=== PATIENT | female | born 1960 | race Caucasian/White ===

== ENCOUNTER 2020-04-05 16:48 | Outpatient (REF) | payer OTHER, SELFPAY | END 2020-04-05 16:49 | disposition home or self-care (01) | LOC: HO.LNP 16:48 | PROVIDERS: Visit Provider Nurse Practitioner Family | DX: Z20.828 Contact with and (suspected) exposure to other viral communicable diseases (principal) | CPT/HCPCS: 87635 ==

== ENCOUNTER 2020-06-21 12:41 | Outpatient (REF) | payer OTHER, SELFPAY ==
[2020-06-21 14:12] LABS: Basophils Absolute Auto 0.1 X10*3/uL (0.0-0.2); Basophils Percent Auto 0.8 % (0-2); Eosinophils Absolute Auto 0.3 X10*3/uL (0.0-0.4); Eosinophils Percent Auto 4.3 % (0-4); Hematocrit 40.3 % (37-47); Hemoglobin 14.4 g/dl (12.0-16.0); Imm Gran Abs Auto 0.02 X10*3/uL (0.00-0.03); Imm Gran Pct Auto 0.3 % (0.0-0.4); Lymphocytes Absolute Auto 1.8 X10*3/uL (1.2-4.9); Lymphocytes Percent Auto 28.5 % (20-40); MANUAL DIFF FLAG NO; Mean Corpuscular HGB Conc 35.7 g/dl (31.0-35.0); Mean Corpuscular Hemoglobin 34.1 pg (27.0-33.0); Mean Corpuscular Volume 95.5 fL (80-98); Mean Platelet Volume 10.7 fL (9.4-12.3); Monocytes Absolute Auto 0.4 X10*3/uL (0.1-1.2); Monocytes Percent Auto 6.3 % (2-11); Neutrophils Absolute Auto 3.9 X10*3/uL (2.0-8.3); Neutrophils Percent Auto 59.8 % (45-73); Platelet Count 343 X10*3/uL (160-400); Red Blood Count 4.22 X10*6/uL (4.20-5.50); Red Cell Distribution Width 11.9 % (11.0-16.0); White Blood Count 6.5 X10*3/uL (4.8-10.8)
[2020-06-21 14:50] LABS: Anion Gap 14 (12-20); Blood Urea Nitrogen 17 mg/dL (9-16); Calcium 9.3 mg/dL (8.4-10.2); Carbon Dioxide 30 mmol/L (22-29); Chloride 97 mmol/L (96-108); Cholesterol 244 mg/dL; Estimated Glomerular Filt Rate > 60; Glucose Fasting 95 mg/dL (60-99); HDL Cholesterol 69 mg/dL; LDL Cholesterol Calculated 157 mg/dl; Potassium 3.8 mmol/l (3.3-5.1); Sodium 137 mmol/L (135-145); Triglycerides 90 mg/dL
== END 2020-06-21 12:42 | disposition home or self-care (01) ==
LOC: HO.HMGCLDS 12:41
PROVIDERS: PCP Internal Medicine; Visit Provider Internal Medicine
DX: I10 Essential (primary) hypertension (principal); U07.1 COVID-19
CPT/HCPCS: 36415; 80048; 80061; 85025

== ENCOUNTER 2020-06-29 10:39 | Outpatient (REF) | payer OTHER, SELFPAY ==
--- NOTE | 2020-06-29 | MM_ITS ---
EXAMINATION: MM SCREENING DIGITAL BREAST TOMOSYNTHESIS, BILATERAL CLINICAL INFORMATION: Screening. Asymptomatic. Prior outside mammography at unknown facility. The lifetime risk of breast cancer based on the Tyrer-Cuzick Model is 6%. COMPARISON: None. TECHNIQUE: Digital breast tomosynthesis is performed in both the craniocaudal and mediolateral oblique views along with computer-aided detection (CAD). Synthesized 2D images are generated from the tomosynthesis. FINDINGS: The breasts are heterogeneously dense, which may obscure small masses (ACR BI-RADS breast composition Category c). There are no significant masses, abnormal calcifications, or other abnormalities. The axilla and skin contours are unremarkable. MM/MM tomosynthesis screening BI IMPRESSION: No mammographic evidence of malignancy. ASSESSMENT: BI-RADS 1: Negative RECOMMENDATION: Routine annual mammography screening. This patient's information was entered into a reminder system with a target due date for their next mammogram.
== END 2020-06-29 10:40 | disposition home or self-care (01) ==
LOC: HO.MAMMO 10:39
PROVIDERS: Visit Provider Internal Medicine
DX: Z12.31 Encounter for screening mammogram for malignant neoplasm of breast (principal)
CPT/HCPCS: 77063; 77067

== ENCOUNTER 2021-02-02 10:08 | Outpatient (REF) | payer OTHER, SELFPAY ==
[2021-02-02 12:12] LABS: Alanine Aminotransferase 72 U/L (0-31); Albumin Level 4.6 g/dL (3.5-5.0); Alkaline Phosphatase 91 U/L (39-117); Anion Gap 14 (12-20); Aspartate Amino Transferase 48 U/L (5-31); Blood Urea Nitrogen 17 mg/dL (9-16); Calcium 9.7 mg/dL (8.4-10.2); Carbon Dioxide 28 mmol/L (22-29); Chloride 99 mmol/L (96-108); Estimated Glomerular Filt Rate > 60; Glucose Random 88 mg/dL (60-115); Potassium 4.8 mmol/L (3.3-5.1); Sodium 136 mmol/L (135-145); Total Protein 7.1 g/dL (6.5-8.0)
== END 2021-02-02 10:09 | disposition home or self-care (01) ==
LOC: HO.HMGCLDS 10:08
PROVIDERS: PCP Internal Medicine; Visit Provider Internal Medicine
DX: B00.1 Herpesviral vesicular dermatitis (principal); I10 Essential (primary) hypertension
CPT/HCPCS: 36415; 80053

== ENCOUNTER → 2021-04-20 09:51 | Outpatient (BNVA) | payer OTHER, SELFPAY | PROVIDERS: PCP Internal Medicine; Referring Provider Internal Medicine; Visit Provider Surgery ==

== ENCOUNTER 2021-05-19 15:34 | Outpatient (REF) | payer OTHER, SELFPAY ==
--- NOTE | 2021-05-19 17:10 | PFT_ITS ---
FLOWS: FEV1 103% of predicted at 2.76 L. FVC 93% of predicted at 3.20 L. FEV1 to FVC ratio of 0.86. No bronchodilator response. LUNG VOLUMES: Total lung capacity 87% of predicted at 4.57 L. Residual volume of 69% of predicted at 1.49 L. Slow vital capacity 99% of predicted at 3.16 L. Expiratory reserve volume 48% of predicted at 0.44 L. Diffusion capacity is mildly decreased. IMPRESSION: No obstructive or restrictive ventilatory defect. No bronchodilator response. Decreased diffusion capacity suggest emphysema. Juan Carrero MD AP/MODL / [id number]
== END 2021-05-19 15:35 | disposition home or self-care (01) ==
LOC: HO.RESP 15:34
PROVIDERS: PCP Internal Medicine; Visit Provider Internal Medicine
DX: R06.00 Dyspnea, unspecified (principal); Z87.891 Personal history of nicotine dependence
CPT/HCPCS: 94060; 94727; 94729

== ENCOUNTER 2021-06-08 12:51 | Outpatient (REF) | payer OTHER, SELFPAY ==
[2021-06-08 15:11] LABS: Alanine Aminotransferase 47 U/L (0-31); Albumin Level 4.6 g/dL (3.5-5.0); Alkaline Phosphatase 89 U/L (39-117); Anion Gap 13 (12-20); Aspartate Amino Transferase 29 U/L (5-31); Bilirubin Total 0.9 mg/dL (0.0-1.0); Blood Urea Nitrogen 16 mg/dL (9-16); Calcium 9.8 mg/dL (8.4-10.2); Carbon Dioxide 29 mmol/L (22-29); Chloride 99 mmol/L (96-108); Estimated Glomerular Filt Rate > 60; Glucose Random 77 mg/dL (60-115); Potassium 4.1 mmol/L (3.3-5.1); Sodium 137 mmol/L (135-145); Total Protein 7.2 g/dL (6.5-8.0)
== END 2021-06-08 12:52 | disposition home or self-care (01) ==
LOC: HO.HMGCLDS 12:51
PROVIDERS: PCP Internal Medicine; Visit Provider Internal Medicine
DX: I10 Essential (primary) hypertension (principal); R06.00 Dyspnea, unspecified; R79.89 Other specified abnormal findings of blood chemistry
CPT/HCPCS: 36415; 80053

== ENCOUNTER → 2021-08-16 15:21 | Outpatient (BNVA) | payer OTHER, SELFPAY | PROVIDERS: PCP Internal Medicine; Referring Provider Internal Medicine; Visit Provider Nurse Practitioner ==

== ENCOUNTER 2021-10-20 07:56 | Outpatient (REF) | payer OTHER, SELFPAY ==
[2021-10-20 07:41] VITALS: BP 159/90; PULSE 77; RESP 19; TEMP 36.6; O2SAT 100; BMI 23.3
--- NOTE | 2021-10-20 08:19 | W.PM.OPN ---
Operative Note Operative Note Date of Service: 10/20/21 Narrative: Preop diagnosis: Epidermal inclusion cyst, upper back Postop diagnosis: The same Procedure: Excision of epidermal inclusion cyst from the upper back under local anesthesia Surgeon: Jono Hutchins MD The patient is a 61-year-old female an epidermal inclusion cyst on the upper back measuring about 1 cm in diameter. She understood the technique of excision under local anesthesia. She was aware of the risks, benefits, and alternatives . She was brought to the minor procedure room. She was placed prone. The area of the cyst was prepped and draped. Lidocaine 1% was used for local anesthesia. I made an elliptical incision on the skin overlying this cyst and this was carried down through the full-thickness of the skin and subcutaneous fat to excise the entire cyst with the capsule intact. This dressings were applied. The procedure was completed. The patient tolerated procedure well. There were no complications noted. Estimated blood loss about 2 cc . She was given wound care instructions.
== END 2021-10-20 07:57 | disposition home or self-care (01) ==
LOC: HO.MS 07:56
PROVIDERS: PCP Internal Medicine; Visit Provider Surgery
PROC: (CPT 11402; principal; 2021-10-20 08:00)
DX: L72.0 Epidermal cyst (principal)
CPT/HCPCS: 11402; 88304

== ENCOUNTER → 2021-11-03 09:55 | Outpatient (BNVA) | payer OTHER, SELFPAY | PROVIDERS: PCP Internal Medicine; Referring Provider Internal Medicine; Visit Provider Surgery | DX: L72.0 Epidermal cyst (principal) ==

== ENCOUNTER 2022-08-02 12:26 | Outpatient (REF) | payer OTHER, SELFPAY ==
[2022-08-02 15:06] LABS: Alanine Aminotransferase 21 U/L (0-31); Albumin Level 4.5 g/dL (3.5-5.0); Alkaline Phosphatase 76 U/L (39-117); Anion Gap 12 (12-20); Aspartate Amino Transferase 15 U/L (5-31); Bilirubin Total 1.1 mg/dL (0.0-1.0); Blood Urea Nitrogen 22 mg/dL (9-16); Calcium 9.7 mg/dL (8.4-10.2); Carbon Dioxide 31 mmol/L (22-29); Chloride 98 mmol/L (96-108); Estimated Glomerular Filt Rate > 60; Glucose Random 80 mg/dL (60-115); Potassium 4.4 mmol/L (3.3-5.1); Sodium 137 mmol/L (135-145)
== END 2022-08-02 12:27 | disposition home or self-care (01) ==
LOC: HO.HMGCLDS 12:26
PROVIDERS: PCP Internal Medicine; Visit Provider Internal Medicine
DX: E78.9 Disorder of lipoprotein metabolism, unspecified (principal); I10 Essential (primary) hypertension
CPT/HCPCS: 36415; 80053

== ENCOUNTER 2023-01-30 11:13 | Outpatient (REF) | payer OTHER, SELFPAY ==
--- NOTE | ~2023-01-30 | MM_ITS ---
EXAMINATION: MM SCREENING DIGITAL BREAST TOMOSYNTHESIS, BILATERAL CLINICAL INFORMATION: Screening. Asymptomatic. COMPARISON: Mammography: This study is compared with prior exams dating back to 2020. TECHNIQUE: Digital breast tomosynthesis is performed in both the craniocaudal and mediolateral oblique views along with computer-aided detection (CAD). Synthesized 2D images are generated from the tomosynthesis. FINDINGS: The breasts are heterogeneously dense, which may obscure small masses (ACR BI-RADS breast composition Category c). There are no suspicious masses, calcifications or areas of architectural distortion. MM/MM tomosynthesis screening BI IMPRESSION: No mammographic evidence of malignancy. ASSESSMENT: BI-RADS BI-RADS 1 - Negative RECOMMENDATION: Routine annual mammography screening. 1 year F/U This examination should not preclude the clinical evaluation of a suspicious palpable abnormality. This patient's information was entered into a reminder system with a target due date for their next mammogram.
== END 2023-01-30 11:14 | disposition home or self-care (01) ==
LOC: HO.MAMMO 11:13
PROVIDERS: Visit Provider Internal Medicine
DX: Z12.31 Encounter for screening mammogram for malignant neoplasm of breast (principal)
CPT/HCPCS: 77063; 77067

== ENCOUNTER → 2023-01-30 11:30 | Outpatient (BNV) | payer OTHER, SELFPAY | PROVIDERS: Visit Provider Radiology Diagnostic Radiology | DX: Z12.31 Encounter for screening mammogram for malignant neoplasm of breast (principal) | CPT/HCPCS: 77063; 77067 ==

== ENCOUNTER 2023-02-05 12:45 | Outpatient (AMB) | payer OTHER, SELFPAY ==
--- NOTE | 2023-02-05 13:25 | AM.OFFWIN_ITS ---
Intake Vital Signs 02/05/23 13:27 Weight 148 lb BP 120/78 Blood Pressure Location Rt brachial Position Sitting Pulse 66 Pulse Source Pulse Oximeter Temp 97.8 F Temp Source Temporal Artery Scan Pulse Oximetry (%) 99 Oxygen Delivery Method Room Air Intake Visit Reasons: EST/bug bite causing sore jaw/neck Intake Note: Patient here for a rash that started on right arm and now spreading to the left arm. she states she was cleaning in an area of the yard last weekend that shes never really done in the past. she is now experiencing neck soreness under jaw line on each side. no issues swallowing. Patient Tobacco Use Status: Former Tobacco user Allergies seasonal Allergy (Unknown, Uncoded 02/05/23 14:09) unknown Medication List - Last Reconciled 02/05/23 by Britton Sun MD atenolol-chlorthalidone 50-25 mg 1 tab PO DAILY 90 days prednisone 10 mg PO DAILY valacyclovir 0 mg PO Do you need a note to return to daycare/school/sports/work: No HPI EST/bug bite causing sore jaw/neck HPI Details 62-year-old female presents to the office for a sick visit. Patient was weeding and has now developed a rash on both her forearms. Small blisters and it is itchy. [facility] Medical History Anxiety Epidermal inclusion cyst Hypertension, essential Lab test positive for detection of COVID-19 virus Surgical History History of removal of cyst Family History Father Heart disease Substance use disorder Mother HTN (hypertension) Mental health disorder Brother No problems noted. Sister Heart disease Substance use disorder Social History Housing: House Alcohol intake: current Alcohol intake frequency: a few times a week Patient Tobacco Use Status: Former Tobacco user Tobacco use type: Cigarette Years Smoked: 26 years e-Cigarette/Vaping Use: Never Used service: No Current occupational status: employed Cognitive needs: No Hearing needs: No Vision needs: Yes Physical Exam Vital Signs: Last Vital Signs Temp 97.8 F 02/05/23 13:27 Pulse 66 02/05/23 13:27 BP 120/78 02/05/23 13:27 Pulse Ox 99 02/05/23 13:27 Oxygen Delivery Method Room Air 02/05/23 13:27 Extrem Other: Right and left forearms: linear vesicular rash on both arms. Scratch arias present. Assessment & Plan Assessment & Plan (1) Contact dermatitis: Code(s): L25.9 - Unspecified contact dermatitis, unspecified cause Plan: Tapering dose of prednisone. If symptoms not better to follow-up here. Medications: New prednisone 6 pills by mouth day 1, 6 pills by mouth day 2, 5 pills by mouth day 3, 4 pills by mouth day 4, 3 pills by mouth day 5, 2 pills by mouth day 6, 1 pill by mouth day 7 and 1 pill by mouth day 8. 10 mg PO DAILY 28 tabs 0RF Coding Level of Care Code Est Pt Level 3 (67626) Diagnoses Contact dermatitis L25.9
[2023-02-05 13:27] VITALS: BP 120/78; PULSE 66; TEMP 36.6; O2SAT 99
== END 2023-02-05 14:25 | disposition home or self-care (01) ==
PROVIDERS: PCP Internal Medicine; Visit Provider Internal Medicine
DX: L25.9 Unspecified contact dermatitis, unspecified cause (principal)
CPT/HCPCS: 99213

== ENCOUNTER 2023-05-16 11:24 | Outpatient (REF) | payer OTHER, SELFPAY ==
[2023-05-16 13:45] LABS: Alanine Aminotransferase 29 U/L (0-31); Albumin Level 4.7 g/dL (3.5-5.0); Alkaline Phosphatase 76 U/L (39-117); Anion Gap 12 (12-20); Aspartate Amino Transferase 22 U/L (5-31); Blood Urea Nitrogen 18 mg/dL (9-16); Calcium 9.7 mg/dL (8.4-10.2); Carbon Dioxide 30 mmol/L (22-29); Chloride 96 mmol/L (96-108); Cholesterol 208 mg/dL (<200); Estimated Glomerular Filt Rate > 60; Glucose Fasting 95 mg/dL (60-99); HDL Cholesterol 55 mg/dL (>40); LDL Cholesterol Calculated 140 mg/dL (<100); Potassium 3.9 mmol/L (3.3-5.1); Sodium 134 mmol/L (135-145); Total Protein 7.4 g/dL (6.5-8.0); Triglycerides 67 mg/dL (<150)
== END 2023-05-16 11:25 | disposition home or self-care (01) ==
LOC: HO.HMGCLDS 11:24
PROVIDERS: PCP Internal Medicine; Visit Provider Internal Medicine
DX: D23.5 Other benign neoplasm of skin of trunk (principal); E78.9 Disorder of lipoprotein metabolism, unspecified; I10 Essential (primary) hypertension
CPT/HCPCS: 36415; 80053; 80061

== ENCOUNTER 2023-05-23 12:37 | Outpatient (AMB) | payer OTHER, SELFPAY ==
[2023-05-23 12:41] VITALS: BP 126/82; PULSE 69; O2SAT 96; BMI 24.7
--- NOTE | 2023-05-23 12:41 | A.OFFPC_ITS ---
Vital Signs 05/23/23 12:41 Height 5 ft 5 in Weight 148 lb 4 oz BMI 24.7 BP 126/82 Blood Pressure Location Rt brachial Position Sitting Pulse 69 Pulse Source Pulse Oximeter Pulse Oximetry (%) 96 Oxygen Delivery Method Room Air Intake Visit Reasons: 6m follow up Allergies seasonal Allergy (Unknown, Uncoded 02/05/23 14:09) unknown Medication List - Last Reconciled 05/23/23 by Earlene Chambers MD atenolol-chlorthalidone 50-25 mg 1 tab PO DAILY 90 days valacyclovir 0 mg PO Tobacco use date assessed: 05/23/23 Dental Screening Dental Screen Date: 05/23/23 Did you have a dental visit in the last 12 months?: Yes Did you have a dental problem in the last 6 months where you did not have access to dental care?: No Was dental information given to patient?: Patient has dentist HPI 6m follow up HPI Details Patient is 62-year-old female came in today for her regular follow-up appointment Blood pressure is well controlled patient is taking atenolol chlorthalidone 50- 25 mg and tolerating medication Her sodium came back slightly low at 134 We talked about alcohol consumption I would recommend that patient stopped drinking altogether. Her liver enzymes are normal now. Having difficulty sleeping at night she is taking below to need with Tylenol PM I would recommend to not take Tylenol p.m. instead she may take 1 Benadryl 25 mg at night. Labs to be done in couple of months to follow-up on low-sodium Patient have emphysema, she had pulmonary function test few years ago Also tells me that in the morning she wakes up and she coughs and coughs until her chest is clear of mucus. Then she is fine all day Patient is ex-smoker [facility] Medical History Epidermal inclusion cyst Anxiety Lab test positive for detection of COVID-19 virus Hypertension, essential Surgical History History of removal of cyst Family History Father Heart disease Substance use disorder Mother HTN (hypertension) Mental health disorder Brother No problems noted. Sister Heart disease Substance use disorder Social History Housing: House Alcohol intake: current Alcohol intake frequency: a few times a week Patient Tobacco Use Status: Former Tobacco user Tobacco use type: Cigarette Years Smoked: 26 years e-Cigarette/Vaping Use: Never Used service: No Current occupational status: employed Cognitive needs: No Hearing needs: No Vision needs: Yes Questionnaire Thrive Questionnaire Date Thrive assessed: 06/14/21 AUDIT C Alcohol Use Questionnaire (AUDIT-C) 1. How often do you have a drink containing alcohol?: 2-3 times a week 2. How many drinks containing alcohol do you have on a typical day when you are drinking?: 1 or 2 3. How often do you have six or more drinks on one occasion?: Never Total Score: 3 Score Reviewed/Action Taken: Yes JUD-7 AMB Questionnaire JUD-7 Date JUD - 7 assessed: 06/14/21 Source: Developed by Drs. Lyndon Perales, Wendy Dela Cruz, Chalo Beavers and colleagues, with an educational leslie from [employer]. Review of Systems Const Denies chills and Denies fever(s) ENT Denies epistaxis and Denies nasal discharge Card Denies chest pain Resp Denies chest congestion, Denies cough and Denies hemoptysis GI Denies diarrhea and Denies nausea Skin/Breast Denies rash Neuro Reports no additional complaints Psych Reports no additional complaints Endo Reports no additional complaints Physical exam (Primary Care) Vital Signs: Last Vital Signs Pulse 69 05/23/23 12:41 BP 126/82 05/23/23 12:41 Pulse Ox 96 05/23/23 12:41 Oxygen Delivery Method Room Air 05/23/23 12:41 BMI result Body Mass Index 24.7 Tobacco/Smoking Status: Tobacco use Status Tobacco use date assessed 05/23/23 05/23/23 12:45 Patient Tobacco Use Status Former Tobacco user 05/23/23 12:45 Tobacco use type Cigarette 05/23/23 12:45 e-Cigarette/Vaping Use Never Used 05/23/23 12:45 Thrive Assessment: Date of Thrive Assessment Date Thrive assessed 06/14/21 05/23/23 12:45 Const General: cooperative, comfortable and no acute distress Orientation/consciousness: patient oriented x3 HENMT Head: Yes normocephalic Eyes General: appearance normal, both eyes and all related structures Neck Neck: Yes supple Resp Effort & Inspection: normal respiratory effort, no cough and no stridor Cardio Rhythm: regular rhythm Heart sounds: S1 normal heart sound present and S2 normal heart sound present Skin General skin exam: turgor normal Neuro General: patient oriented x3, tone normal and moves all extremities Extrem Right lower extremity: no edema Left lower extremity: no edema Assessment and Plan Assessment & Plan (1) Hypertension, essential: Code(s): I10 - Essential (primary) hypertension (2) Mild emphysema: Code(s): J43.9 - Emphysema, unspecified (3) Alcoholism: Code(s): F10.20 - Alcohol dependence, uncomplicated (4) Blepharoptosis, bilateral: Code(s): H02.403 - Unspecified ptosis of bilateral eyelids (5) Hyponatremia: Code(s): E87.1 - Hypo-osmolality and hyponatremia Plan Patient is 62-year-old female came in today for her regular follow-up appointment Blood pressure is well controlled patient is taking atenolol chlorthalidone 50- 25 mg and tolerating medication Her sodium came back slightly low at 134 We talked about alcohol consumption I would recommend that patient stopped drinking altogether. Her liver enzymes are normal now. Having difficulty sleeping at night she is taking below to need with Tylenol PM I would recommend to not take Tylenol p.m. instead she may take 1 Benadryl 25 mg at night. Labs to be done in couple of months to follow-up on low-sodium Patient have emphysema, she had pulmonary function test few years ago Also tells me that in the morning she wakes up and she coughs and coughs until her chest is clear of mucus. Then she is fine all day Patient is ex-smoker Orders: Orders Basic Metabolic Panel Today E87.1 - Hypo-osmolality and hyponatremia Medications: Refilled atenolol-chlorthalidone 50-25 mg 1 tab PO DAILY 90 days 90 tabs 1RF I10 - Essential (primary) hypertension Coding Level of Care Code Est Pt Level 4 (87680) Diagnoses Hypertension, essential I10 Mild emphysema J43.9 Alcoholism F10.20 Blepharoptosis, bilateral H02.403 Hyponatremia E87.1
== END 2023-05-23 13:35 | disposition home or self-care (01) ==
PROVIDERS: PCP Internal Medicine; Visit Provider Internal Medicine
DX: I10 Essential (primary) hypertension (principal); J43.9 Emphysema, unspecified; F10.20 Alcohol dependence, uncomplicated; H02.403 Unspecified ptosis of bilateral eyelids; E87.1 Hypo-osmolality and hyponatremia
CPT/HCPCS: 99214

== ENCOUNTER 2023-11-10 10:48 | Outpatient (REF) | payer OTHER, SELFPAY ==
[2023-11-10 14:01] LABS: Anion Gap 14 (12-20); Blood Urea Nitrogen 17 mg/dL (9-16); Calcium 9.8 mg/dL (8.4-10.2); Carbon Dioxide 29 mmol/L (22-29); Chloride 95 mmol/L (96-108); Estimated Glomerular Filt Rate > 60; Glucose Random 85 mg/dL (60-115); Potassium 4.3 mmol/L (3.3-5.1); Sodium 134 mmol/L (135-145)
== END 2023-11-10 10:49 | disposition home or self-care (01) ==
LOC: HO.HMGCLDS 10:48
PROVIDERS: PCP Internal Medicine; Visit Provider Internal Medicine
DX: E87.1 Hypo-osmolality and hyponatremia (principal)
CPT/HCPCS: 36415; 80048

== ENCOUNTER 2023-11-14 11:12 | Outpatient (AMB) | payer OTHER, SELFPAY ==
--- NOTE | 2023-11-14 11:54 | MHC.PC.OV ---
Intake Visit Reasons: 6 month fu Allergies seasonal Allergy (Unknown, Uncoded 02/05/23 14:09) unknown Medication List - Last Reconciled 11/14/23 by Earlene Chambers MD atenolol-chlorthalidone 50-25 mg 1 tab PO DAILY 90 days valacyclovir 0 mg PO Tobacco use date assessed: 11/14/23 Dental Screening Dental Screen Date: 11/14/23 Did you have a dental visit in the last 12 months?: Yes Did you have a dental problem in the last 6 months where you did not have access to dental care?: No Was dental information given to patient?: Patient has dentist HPI 6 month fu HPI Details Patient is 63-year-old female this is telemed visit patient is taking atenolol chlorthalidone 50-25 mg and tolerating medication Her sodium came back slightly low at 134 We talked about alcohol consumption again today, I would recommend that patient stopped drinking altogether. Patient have emphysema, she had pulmonary function test few years ago doing well without inhalers Patient is ex-smoker f/u 6 M , lab order in [facility] Medical History Epidermal inclusion cyst Anxiety Lab test positive for detection of COVID-19 virus Hypertension, essential Surgical History History of removal of cyst Family History Father Heart disease Substance use disorder Mother HTN (hypertension) Mental health disorder Brother No problems noted. Sister Heart disease Substance use disorder Social History Housing: House Alcohol intake: current Alcohol intake frequency: a few times a week Patient Tobacco Use Status: Former Tobacco user Tobacco use type: Cigarette Years Smoked: 26 years e-Cigarette/Vaping Use: Never Used service: No Current occupational status: employed Cognitive needs: No Hearing needs: No Vision needs: Yes Questionnaire Thrive Questionnaire Date Thrive assessed: 06/14/21 AUDIT C Alcohol Use Questionnaire (AUDIT-C) 1. How often do you have a drink containing alcohol?: 2-3 times a week 2. How many drinks containing alcohol do you have on a typical day when you are drinking?: 1 or 2 3. How often do you have six or more drinks on one occasion?: Never Total Score: 3 Score Reviewed/Action Taken: Yes JUD-7 AMB Questionnaire JUD-7 Date JUD - 7 assessed: 06/14/21 Source: Developed by Drs. Lyndon Perales, Wendy Dela Cruz, Chalo Beavers and colleagues, with an educational leslie from [email or web address]. Review of Systems Const Denies chills and Denies fever(s) ENT Denies epistaxis and Denies nasal discharge Card Denies chest pain Resp Denies chest congestion, Denies cough and Denies hemoptysis GI Denies diarrhea and Denies nausea Skin/Breast Denies rash Neuro Reports no additional complaints Psych Reports no additional complaints Endo Reports no additional complaints Physical exam (Primary Care) Tobacco/Smoking Status: Tobacco use Status Tobacco use date assessed 11/14/23 11/14/23 11:55 Patient Tobacco Use Status Former Tobacco user 11/14/23 11:55 Tobacco use type Cigarette 11/14/23 11:55 e-Cigarette/Vaping Use Never Used 11/14/23 11:55 Thrive Assessment: Date of Thrive Assessment Date Thrive assessed 06/14/21 11/14/23 11:55 Telehealth Telehealth Telehealth Platform: [employer] Location of provider rendering services: practice address Location of patient: address on file Patient Identification confirmed using: Name, : Yes Telehealth method: voice only Patient verbally consented to treatment: Yes Patient verbally consented to billing insurance company: Yes Patient informed of any privacy concerns related to visit: Yes Minutes spent on Phone/Video with Pt.: 14 Assessment and Plan Assessment & Plan (1) Hyponatremia: Code(s): E87.1 - Hypo-osmolality and hyponatremia (2) Mild emphysema: Code(s): J43.9 - Emphysema, unspecified (3) Hypertension, essential: Code(s): I10 - Essential (primary) hypertension (4) Alcoholism: Code(s): F10.20 - Alcohol dependence, uncomplicated Plan Patient is 63-year-old female this is telemed visit patient is taking atenolol chlorthalidone 50-25 mg and tolerating medication Her sodium came back slightly low at 134 We talked about alcohol consumption again today, I would recommend that patient stopped drinking altogether. Patient have emphysema, she had pulmonary function test few years ago doing well without inhalers Patient is ex-smoker f/u 6 M , lab order in Orders: Orders Complete Blood Count Auto Diff 6 Months E87.1 - Hypo-osmolality and hyponatremia, I10 - Essential (primary) hypertension, J43.9 - Emphysema, unspecified Vitamin B12 6 Months E87.1 - Hypo-osmolality and hyponatremia, I10 - Essential (primary) hypertension, J43.9 - Emphysema, unspecified Comprehensive Met. Panel 6 Months E87.1 - Hypo-osmolality and hyponatremia, I10 - Essential (primary) hypertension, J43.9 - Emphysema, unspecified LDL Cholesterol Direct 6 Months E87.1 - Hypo-osmolality and hyponatremia, I10 - Essential (primary) hypertension, J43.9 - Emphysema, unspecified TSH reflex Free T4 6 Months E87.1 - Hypo-osmolality and hyponatremia, I10 - Essential (primary) hypertension, J43.9 - Emphysema, unspecified Medications: Refilled atenolol-chlorthalidone 50-25 mg 1 tab PO DAILY 90 days 90 tabs 1RF I10 - Essential (primary) hypertension Coding Level of Care Code Tele Est Pt Level 3 (95592) Diagnoses Hyponatremia E87.1 Mild emphysema J43.9 Hypertension, essential I10 Alcoholism F10.20
== END 2023-11-14 12:49 | disposition home or self-care (01) ==
LOC: HO.HMGC 11:12
PROVIDERS: PCP Internal Medicine; Visit Provider Internal Medicine
DX: E87.1 Hypo-osmolality and hyponatremia (principal); J43.9 Emphysema, unspecified; F10.20 Alcohol dependence, uncomplicated; I10 Essential (primary) hypertension
CPT/HCPCS: 99442

== ENCOUNTER 2024-02-05 10:37 | Outpatient (REF) | payer OTHER, SELFPAY ==
--- NOTE | ~2024-02-05 | MM_ITS ---
EXAMINATION: MM SCREENING DIGITAL BREAST TOMOSYNTHESIS, BILATERAL CLINICAL INFORMATION: Screening. Asymptomatic. COMPARISON: Mammography: Comparison is made with available priors TECHNIQUE: Digital breast tomosynthesis is performed in both the craniocaudal and mediolateral oblique views along with computer-aided detection (CAD). Synthesized 2D images are generated from the tomosynthesis. FINDINGS: The breasts are heterogeneously dense, which may obscure small masses (ACR BI-RADS breast composition Category c). There are no significant masses, abnormal calcifications, or other abnormalities. MM/MM tomosynthesis screening BI IMPRESSION: No mammographic evidence of malignancy. ASSESSMENT: BI-RADS BI-RADS 1 - Negative RECOMMENDATION: Routine annual mammography screening. 1 year F/U This examination should not preclude the clinical evaluation of a suspicious palpable abnormality. This patient's information was entered into a reminder system with a target due date for their next mammogram. Electronically signed by: Chelsea Dill DO 02/29/2024 03:01 PM EDT
== END 2024-02-05 10:38 | disposition home or self-care (01) ==
LOC: HO.MAMMO 10:37
PROVIDERS: PCP Internal Medicine; Visit Provider Internal Medicine
DX: Z12.31 Encounter for screening mammogram for malignant neoplasm of breast (principal)
CPT/HCPCS: 77063; 77067

== ENCOUNTER → 2024-02-05 11:00 | Outpatient (BNV) | payer OTHER, SELFPAY | PROVIDERS: PCP Internal Medicine; Visit Provider Internal Medicine | DX: Z12.31 Encounter for screening mammogram for malignant neoplasm of breast (principal) | CPT/HCPCS: 77063; 77067 ==

== ENCOUNTER 2024-02-22 09:33 | Outpatient (AMB) | payer OTHER, SELFPAY ==
[2024-02-22 09:36] VITALS: BP 120/80; PULSE 71; O2SAT 98; BMI 24.5
--- NOTE | 2024-02-22 09:36 | A.OFFPC_ITS ---
Vital Signs 3 02/22/24 09:36 Height 5 ft 5 in Weight 147 lb 2 oz BMI 24.5 BP 120/80 Blood Pressure Location Rt brachial Position Sitting Pulse 71 Pulse Source Pulse Oximeter Pulse Oximetry (%) 98 Oxygen Delivery Method Room Air Intake Visit Reasons: [id number] Allergies seasonal Allergy (Unknown, Uncoded 02/05/23 14:09) unknown Medication List - Last Reconciled 02/22/24 by Earlene Chambers MD atenolol-chlorthalidone 50-25 mg 1 tab PO DAILY 90 days valacyclovir 0 mg PO Tobacco use date assessed: 02/22/24 Dental Screening Dental Screen Date: 02/22/24 Did you have a dental visit in the last 12 months?: Yes Did you have a dental problem in the last 6 months where you did not have access to dental care?: No Was dental information given to patient?: Patient has dentist HPI [id number] 2 HPI0 Details Patient is 63-year-old female came in today to talk about couple of medical issues Patient says that she was at her OBGYN visit as she has noticed a lump right mid back in a meter OBGYN told her that this is a fat accumulation and it can be removed Patient wanted a 2nd opinion so she came in today to see me She has developed lipoma right mid back mid scapular line 7 cm x 4 cm soft nontender no skin eryth joanne We will continue to observe that as patient does not want any intervention She has also developed a cyst right epicondyle Patient had skin injury when she dropped a bottle of apple cider vinegar Laceration has healed but she has developed assist next to it which is nontender and is a size of a pea She will return in 2 weeks for re-evaluation [facility] Medical History Epidermal inclusion cyst Anxiety Lab test positive for detection of COVID-19 virus Hypertension, essential Surgical History History of removal of cyst Family History Father Heart disease Substance use disorder Mother HTN (hypertension) Mental health disorder Brother No problems noted. Sister Heart disease Substance use disorder Social History Housing: House Alcohol intake: current Alcohol intake frequency: a few times a week Patient Tobacco Use Status: Former Tobacco user Tobacco use type: Cigarette Years Smoked: 26 years e-Cigarette/Vaping Use: Never Used service: No Current occupational status: employed Cognitive needs: No Hearing needs: No Vision needs: Yes Questionnaire PHQ-9 Over the last 2 weeks, how often have you been bothered by any of the following problems? 1. Little interest or pleasure in doing things: not at all 2. Feeling down, depressed, or hopeless: not at all 3. Trouble falling or staying asleep, or sleeping too much: not at all 4. Feeling tired or having little energy: not at all 5. Poor appetite or overeating: not at all 6. Feeling bad about yourself - or that you are a failure or have let yourself or your family down: not at all 7. Trouble concentrating on things, such as reading the newspaper or watching television: not at all 8. Moving or speaking so slowly that other people could have noticed. Or the opposite - being so fidgety or restless that you have been moving around a lot more than usual: not at all 9. Thoughts that you would be better off or of hurting yourself in some way: not at all Total score: 0 Depression Screening Interpretation: Negative Depression Screening Done: Yes [id number] - PHQ-9 Billing: Yes Source: Developed by Drs. Lyndon Perales, Wendy Dela Cruz, Chalo Beavers and colleagues, with an educational leslie from [employer]. Thrive Questionnaire Date Thrive assessed: 02/22/24 I am a: Patient What is your living situation today?: I have a steady place to live Within the past 12 months, did the food you bought not last and you didn't have the money to get more?: Never true Within the past 12 months, did you worry whether your food would run out before you got money to buy more?: Never true Do you have trouble paying for medicines?: No Do you have trouble getting transportation to medical appointments?: No Do you have trouble paying your heating and electricity bill?: No Do you have trouble taking care of your child, family member or friend?: No Do you have trouble with day-to-day activities such as bathing, preparing meals, shopping, managing finances, etc.?: No Are you currently unemployed and looking for a job?: No Are you interested in more education?: No Please select the resources that you would like help with: None Currently or been in a relationship where the following occur: No concerns reported THRIVE Score: 0 AUDIT C Alcohol Use Questionnaire (AUDIT-C) 1. How often do you have a drink containing alcohol?: 2-4 times a month 2. How many drinks containing alcohol do you have on a typical day when you are drinking?: 1 or 2 3. How often do you have six or more drinks on one occasion?: Never Total Score: 2 Score Reviewed/Action Taken: Yes JUD-7 AMB Questionnaire JUD-7 Date JUD - 7 assessed: 02/22/24 Feeling nervous, anxious, or on edge: 0 = Not at all Not being able to stop or control worryin = Not at all Worrying too much about different things: 0 = Not at all Trouble relaxin = Not at all Being so restless that it is hard to sit still: 0 = Not at all Becoming easily annoyed or irritable: 0 = Not at all Feeling afraid as if something awful might happen: 0 = Not at all Total JUD-7 score (0-4 normal; 5-9 mild; 10-14 moderate; 15-21 severe): 0 Source: Developed by Drs. Lyndon Perales, Wendy Dela Cruz, Chalo Beavers and colleagues, with an educational leslie from [employer]. JUD-7 Assessment Billing JUD-7 Assessment Tool: JUD-7 Assessment 27372 Review of Systems Const Denies chills and Denies fever(s) ENT Denies epistaxis and Denies nasal discharge Card Denies chest pain Resp Denies chest congestion, Denies cough and Denies hemoptysis GI Denies diarrhea and Denies nausea Skin/Breast Denies rash Neuro Reports no additional complaints Psych Reports no additional complaints Endo Reports no additional complaints Physical exam (Primary Care) Vital Signs: Last Vital Signs Pulse 71 02/22/24 09:36 BP 120/80 02/22/24 09:36 Pulse Ox 98 02/22/24 09:36 Oxygen Delivery Method Room Air 02/22/24 09:36 BMI result Body Mass Index 24.5 Tobacco/Smoking Status: Tobacco use Status Tobacco use date assessed 02/22/24 02/22/24 09:38 Patient Tobacco Use Status Former Tobacco user 02/22/24 09:38 Tobacco use type Cigarette 02/22/24 09:38 e-Cigarette/Vaping Use Never Used 02/22/24 09:38 PHQ-9: PHQ-9 Score PHQ-9: Total score 0 02/22/24 10:02 Depression Screening Interpretation: Negative Thrive Assessment: Date of Thrive Assessment Date Thrive assessed 02/22/24 02/22/24 09:38 Currently or been in a relationship where the following occur: No concerns reported Const General: cooperative, comfortable and no acute distress Orientation/consciousness: patient oriented x3 HENMT Head: Yes normocephalic Eyes General: appearance normal, both eyes and all related structures Neck Neck: Yes supple Resp Effort & Inspection: normal respiratory effort, no cough and no stridor Cardio Rhythm: regular rhythm Heart sounds: S1 normal heart sound present and S2 normal heart sound present Back/Spine/Pelvis Back/spine/pelvis image: 2 1. 7 cm x 4 cm along soft lump, nontender without any skin erythema Skin General skin exam: turgor normal Neuro General: patient oriented x3, tone normal and moves all extremities Extrem Right lower extremity: no edema Left lower extremity: no edema Ankle/foot/toe images: 2 1. Small cyst over medial epicondyle right side without any pain or skin erythema Assessment and Plan Assessment & Plan (1) Lipoma of posterior chest wall: Code(s): D17.1 - Benign lipomatous neoplasm of skin and subcutaneous tissue of trunk (2) Dermoid cyst: Code(s): D36.9 - Benign neoplasm, unspecified site Plan Patient is 63-year-old female came in today to talk about couple of medical issues Patient says that she was at her OBGYN visit as she has noticed a lump right mid back in a meter OBGYN told her that this is a fat accumulation and it can be removed Patient wanted a 2nd opinion so she came in today to see me She has developed lipoma right mid back mid scapular line 7 cm x 4 cm soft nontender no skin erythema We will continue to observe that as patient does not want any intervention She has also developed a cyst right epicondyle Patient had skin injury when she dropped a bottle of apple cider vinegar Laceration has healed but she has developed assist next to it which is nontender and is a size of a pea She will return in 2 weeks for re-evaluation Coding Level of Care Code Est Pt Level 3 (48458) Diagnoses Lipoma of posterior chest wall D17.1 Dermoid cyst D36.9 Additional Codes JUD-7 Assessment Billing - JUD-7 Assessment Tool: JUD-7 Assessment [id number] ([id number])
== END 2024-02-22 10:05 | disposition home or self-care (01) ==
PROVIDERS: PCP Internal Medicine; Visit Provider Internal Medicine
DX: D17.1 Benign lipomatous neoplasm of skin and subcutaneous tissue of trunk (principal); D36.9 Benign neoplasm, unspecified site
CPT/HCPCS: 99213

== ENCOUNTER 2024-03-14 08:18 | Outpatient (AMB) | payer OTHER, SELFPAY ==
[2024-03-14 08:25] VITALS: BP 128/80; PULSE 63; O2SAT 100; BMI 24.5
--- NOTE | 2024-03-14 08:25 | MHC.PC.OV ---
Vital Signs 03/14/24 08:25 Height 5 ft 5 in Weight 147 lb 8 oz BMI 24.5 BP 128/80 Blood Pressure Location Lt brachial Position Sitting Pulse 63 Pulse Source Pulse Oximeter Pulse Oximetry (%) 100 Oxygen Delivery Method Room Air Intake Visit Reasons: 2- 3 week follow up. PT requested 3 weeks Allergies seasonal Allergy (Unknown, Uncoded 02/05/23 14:09) unknown Medication List - Last Reconciled 03/14/24 by Earlene Chambers MD atenolol-chlorthalidone 50-25 mg 1 tab PO DAILY 90 days valacyclovir 0 mg PO Tobacco use date assessed: 03/14/24 Dental Screening Dental Screen Date: 03/14/24 Did you have a dental visit in the last 12 months?: Yes Did you have a dental problem in the last 6 months where you did not have access to dental care?: No Was dental information given to patient?: Patient has dentist HPI 2- 3 week follow up. PT requested 3 weeks HPI Details Patient is 63-year-old female came in today to have a small procedure done in the office She has developed a small cyst on right ankle medial aspect which is not getting better Patient says that when it presses it hurts She has no erythema no warmth, sensory vascular intact Under sterile condition half a cm berenice was given over the cyst which is a size of Pea Clear fluid followed by small amount of blood drained Pressure was applied bleeding stopped, Band-Aid applied followed by James wrap Patient tolerated procedure well Instructions were given to keep an eye on the wound until healed If there is any erythema or pain she is to let me know [facility] Medical History Epidermal inclusion cyst Anxiety Lab test positive for detection of COVID-19 virus Hypertension, essential Surgical History History of removal of cyst Family History Father Heart disease Substance use disorder Mother HTN (hypertension) Mental health disorder Brother No problems noted. Sister Heart disease Substance use disorder Social History Housing: House Alcohol intake: current Alcohol intake frequency: a few times a week Patient Tobacco Use Status: Former Tobacco user Tobacco use type: Cigarette Years Smoked: 26 years e-Cigarette/Vaping Use: Never Used service: No Current occupational status: employed Cognitive needs: No Hearing needs: No Vision needs: Yes Questionnaire Thrive Questionnaire Date Thrive assessed: 03/14/24 I am a: Patient What is your living situation today?: I have a steady place to live Within the past 12 months, did the food you bought not last and you didn't have the money to get more?: Never true Within the past 12 months, did you worry whether your food would run out before you got money to buy more?: Never true Do you have trouble paying for medicines?: No Do you have trouble getting transportation to medical appointments?: No Do you have trouble paying your heating and electricity bill?: No Do you have trouble taking care of your child, family member or friend?: No Do you have trouble with day-to-day activities such as bathing, preparing meals, shopping, managing finances, etc.?: No Are you currently unemployed and looking for a job?: No Are you interested in more education?: No Please select the resources that you would like help with: None Currently or been in a relationship where the following occur: No concerns reported THRIVE Score: 0 AUDIT C Alcohol Use Questionnaire (AUDIT-C) 1. How often do you have a drink containing alcohol?: 2-4 times a month 2. How many drinks containing alcohol do you have on a typical day when you are drinking?: 1 or 2 3. How often do you have six or more drinks on one occasion?: Never Total Score: 2 Score Reviewed/Action Taken: Yes JUD-7 AMB Questionnaire JUD-7 Date JUD - 7 assessed: 02/22/24 Source: Developed by Drs. Lyndon Perales, Wendy Dela Cruz, Chalo Beavers and colleagues, with an educational leslie from [employer]. Review of Systems Const All systems reviewed & are unremarkable except as noted in HPI and below Physical exam (Primary Care) Vital Signs: Last Vital Signs Pulse 63 03/14/24 08:25 BP 128/80 03/14/24 08:25 Pulse Ox 100 03/14/24 08:25 Oxygen Delivery Method Room Air 03/14/24 08:25 BMI result Body Mass Index 24.5 Tobacco/Smoking Status: Tobacco use Status Tobacco use date assessed 03/14/24 03/14/24 08:28 Patient Tobacco Use Status Former Tobacco user 03/14/24 08:28 Tobacco use type Cigarette 03/14/24 08:28 e-Cigarette/Vaping Use Never Used 03/14/24 08:28 Thrive Assessment: Date of Thrive Assessment Date Thrive assessed 03/14/24 03/14/24 08:28 Currently or been in a relationship where the following occur: No concerns reported Const General: no acute distress Orientation/consciousness: patient oriented x3 Eyes General: appearance normal, both eyes and all related structures Resp Effort & Inspection: normal respiratory effort and able to speak in complete sentences Neuro General: patient oriented x3 Extrem Ankle/foot/toe images: 1. pea size round nontender cyst Psych Mental Status: mental status grossly normal Office Procedures I&D Drain Details: Small cyst drain on right ankle medial aspect, with the help of scalpel small incision half a cm, was given and small amount of clear fluid drain under sterile condition Wound cleaned with alcohol , Band-Aid applied followed by James wrap. [id number] Drainage of Lesion All charges added?: Procedure code (CPT) selection complete Coding Level of Care Code Est Pt Level 3 (92661) Diagnoses Ganglion cyst M67.40 CPT Codes I&D Drain - DRAIN 10: [id number] Drainage of Lesion ([id number]) Assessment & Plan Assessment & Plan (1) Ganglion cyst: Code(s): M67.40 - Ganglion, unspecified site Category: Medical Plan Patient is 63-year-old female came in today to have a small procedure done in the office She has developed a small cyst on right ankle medial aspect which is not getting better Patient says that when it presses it hurts She has no erythema no warmth, sensory vascular intact Under sterile condition half a cm berenice was given over the cyst which is a size of Pea Clear fluid followed by small amount of blood drained Pressure was applied bleeding stopped, Band-Aid applied followed by James wrap Patient tolerated procedure well Instructions were given to keep an eye on the wound until healed If there is any erythema or pain she is to let me know
== END 2024-03-14 08:53 | disposition home or self-care (01) ==
PROVIDERS: PCP Internal Medicine; Visit Provider Internal Medicine
DX: M67.40 Ganglion, unspecified site (principal)

== ENCOUNTER → 2024-03-14 08:18 | Outpatient (BNVA) | payer OTHER, SELFPAY | PROVIDERS: PCP Internal Medicine; Visit Provider Internal Medicine | DX: M67.471 Ganglion, right ankle and foot (principal) | CPT/HCPCS: 10060 ==

== ENCOUNTER 2024-04-16 08:17 | Outpatient (AMB) | payer OTHER, SELFPAY ==
--- NOTE | 2024-04-16 08:26 | A.OFFPC_ITS ---
Vital Signs 3 04/16/24 08:28 Height 5 ft 5 in Weight 146 lb BMI 24.3 BP 124/80 Blood Pressure Location Rt brachial Position Sitting Pulse 70 Pulse Source Pulse Oximeter Pulse Oximetry (%) 99 Oxygen Delivery Method Room Air Intake Visit Reasons: Cyst on Ankle Allergies seasonal Allergy (Unknown, Uncoded 04/16/24 08:28) unknown Medication List - Last Reconciled 04/16/24 by Earlene Chambers MD atenolol-chlorthalidone 50-25 mg 1 tab PO DAILY 90 days valacyclovir 0 mg PO Tobacco use date assessed: 04/16/24 Dental Screening Dental Screen Date: 03/14/24 HPI Cyst on Ankle 2 HPI0 Details Patient continued to have cyst over her left medial malleolus Patient says that when she wears boots due to winter weather that is when it bothers her She would like it to be removed completely need orthopedic referral [facility] Medical History Epidermal inclusion cyst Anxiety Lab test positive for detection of COVID-19 virus Hypertension, essential Surgical History History of removal of cyst Family History Father Heart disease Substance use disorder Mother HTN (hypertension) Mental health disorder Brother No problems noted. Sister Heart disease Substance use disorder Social History Housing: House Alcohol intake: current Alcohol intake frequency: a few times a week Patient Tobacco Use Status: Former Tobacco user Tobacco use type: Cigarette Years Smoked: 26 years e-Cigarette/Vaping Use: Never Used service: No Current occupational status: employed Cognitive needs: No Hearing needs: No Vision needs: Yes Questionnaire Thrive Questionnaire Date Thrive assessed: 02/22/24 I am a: Patient What is your living situation today?: I have a steady place to live Within the past 12 months, did the food you bought not last and you didn't have the money to get more?: Never true Within the past 12 months, did you worry whether your food would run out before you got money to buy more?: Never true Do you have trouble paying for medicines?: No Do you have trouble getting transportation to medical appointments?: No Do you have trouble paying your heating and electricity bill?: No Do you have trouble taking care of your child, family member or friend?: No Do you have trouble with day-to-day activities such as bathing, preparing meals, shopping, managing finances, etc.?: No Are you currently unemployed and looking for a job?: No Are you interested in more education?: No Please select the resources that you would like help with: None Currently or been in a relationship where the following occur: No concerns reported THRIVE Score: 0 JUD-7 AMB Questionnaire JUD-7 Date JUD - 7 assessed: 02/22/24 Source: Developed by Drs. Lyndon Perales, Wendy Dela Cruz, Chalo Beavers and colleagues, with an educational leslie from [employer]. Review of Systems Const All systems reviewed & are unremarkable except as noted in HPI and below Physical exam (Primary Care) Vital Signs: Last Vital Signs Pulse 70 04/16/24 08:28 BP 124/80 04/16/24 08:28 Pulse Ox 70 L 04/16/24 08:28 Oxygen Delivery Method Room Air 04/16/24 08:28 BMI result Body Mass Index 24.3 Tobacco/Smoking Status: Tobacco use Status Tobacco use date assessed 04/16/24 04/16/24 08:31 Patient Tobacco Use Status Former Tobacco user 04/16/24 08:27 Tobacco use type Cigarette 04/16/24 08:27 e-Cigarette/Vaping Use Never Used 04/16/24 08:27 Thrive Assessment: Date of Thrive Assessment Date Thrive assessed 02/22/24 04/16/24 08:27 Currently or been in a relationship where the following occur: No concerns reported Const General: no acute distress Orientation/consciousness: patient oriented x3 Eyes General: appearance normal, both eyes and all related structures Resp Effort & Inspection: normal respiratory effort and able to speak in complete sentences Neuro General: patient oriented x3 Extrem Ankle/foot/toe images: 2 1. Small cyst right at the point of left medial malleolus without signs of infection size of Pea Psych Mental Status: mental status grossly normal Coding Level of Care Code Est Pt Level 3 (14465) Diagnoses Acute left ankle pain M25.572 Chronicity: acute Dermoid cyst D36.9 Assessment & Plan Assessment & Plan (1) Pain in left ankle: Code(s): M25.572 - Pain in left ankle and joints of left foot Category: Medical Qualifiers: Chronicity: acute Qualified Code(s): M25.572 - Pain in left ankle and joints of left foot (2) Dermoid cyst: Code(s): D36.9 - Benign neoplasm, unspecified site Category: Medical Plan Patient continued to have cyst over her left medial malleolus Patient says that when she wears boots due to winter weather that is when it bothers her She would like it to be removed completely need orthopedic referral Orders: Referrals 2 Orthopedics Referral M25.572 - Pain in left ankle and joints of left foot
[2024-04-16 08:28] VITALS: BP 124/80; PULSE 70; O2SAT 99; BMI 24.3
== END 2024-04-16 09:04 | disposition home or self-care (01) ==
LOC: HO.HMCC 08:18
PROVIDERS: PCP Internal Medicine; Visit Provider Internal Medicine
DX: M25.572 Pain in left ankle and joints of left foot (principal); D36.9 Benign neoplasm, unspecified site

== ENCOUNTER → 2024-04-16 08:17 | Outpatient (BNVA) | payer OTHER, SELFPAY | PROVIDERS: PCP Internal Medicine; Visit Provider Internal Medicine ==

== ENCOUNTER 2024-09-19 10:33 | Outpatient (AMB) | payer OTHER, SELFPAY ==
[2024-09-19 10:37] VITALS: BP 140/82; PULSE 90; O2SAT 98; BMI 24.7
--- NOTE | 2024-09-19 10:37 | A.OFFPC_ITS ---
Vital Signs 09/19/24 10:37 Height 5 ft 5 in Weight 148 lb 6 oz BMI 24.7 BP 140/82 H Blood Pressure Location Rt brachial Position Sitting Pulse 90 Pulse Source Pulse Oximeter Pulse Oximetry (%) 98 Oxygen Delivery Method Room Air Intake Visit Reasons: Overdue F/U Allergies seasonal Allergy (Unknown, Uncoded 09/19/24 10:40) unknown Medication List - Last Reconciled 09/19/24 by Earlene Chambers MD atenolol-chlorthalidone 50-25 mg 1 tab PO DAILY 90 days valacyclovir 0 mg PO Tobacco use date assessed: 09/19/24 Dental Screening Dental Screen Date: 09/19/24 Did you have a dental visit in the last 12 months?: Yes Did you have a dental problem in the last 6 months where you did not have access to dental care?: No Was dental information given to patient?: Patient has dentist HPI Overdue F/U HPI Details History - The patient is a 64-year-old female pr esenting with a need for a refill of her blood pressure medication. - She has essential hypertension and rep orted inadvertent non-adherence to her medication for two days. - patient was struggling with the insura nce missed her regular appointment Problem List - Essential Hypertension Patient Instructions - Begin taking the blood pressure medica tion daily as prescribed. - Complete the necessary laboratory test s as advised. - Monitor blood pressure regularly at [facility]. - Follow up for routine checks every six months. Review of Systems - General: No fever no chills - Neurological: No headaches no dizziness - Ear nose throat: No sore throat no hearing difficulty no ear pain - Cardiovascular: No syncope, no chest pain, no palpitations - Gastrointestinal: No nausea vomiting or diarrhea - Endocrine: No polyuria polydipsia no heat intolerance - Genitourinary: No dysuria , no blood in urine Physical Exam - General: No acute distress - HEENT: No acute findings - Neck: Supple - Respiratory system: Able to talk in f ull sentences, no audible wheeze - Cardiovascular: S1-S2 regular in rate and rhythm - Gastrointestinal: No pain - Extremities: No new findings - CROP SCOUT: Alert awake oriented x3 motor se nsory intact - Skin: Normal turgor [facility] Medical History Epidermal inclusion cyst Anxiety Lab test positive for detection of COVID-19 virus Hypertension, essential Surgical History History of removal of cyst Family History Father Heart disease Substance use disorder Mother HTN (hypertension) Mental health disorder Brother No problems noted. Sister Heart disease Substance use disorder Social History Housing: House Alcohol intake: current Alcohol intake frequency: a few times a week Patient Tobacco Use Status: Former Tobacco user Tobacco use type: Cigarette Years Smoked: 26 years e-Cigarette/Vaping Use: Never Used service: No Current occupational status: employed Cognitive needs: No Hearing needs: No Vision needs: Yes Questionnaire PHQ-9 Over the last 2 weeks, how often have you been bothered by any of the following problems? 1. Little interest or pleasure in doing things: not at all 2. Feeling down, depressed, or hopeless: not at all 3. Trouble falling or staying asleep, or sleeping too much: not at all 4. Feeling tired or having little energy: not at all 5. Poor appetite or overeating: not at all 6. Feeling bad about yourself - or that you are a failure or have let yourself or your family down: not at all 7. Trouble concentrating on things, such as reading the newspaper or watching television: not at all 8. Moving or speaking so slowly that other people could have noticed. Or the opposite - being so fidgety or restless that you have been moving around a lot more than usual: not at all 9. Thoughts that you would be better off or of hurting yourself in some way: not at all Total score: 0 Depression Screening Interpretation: Negative Depression Screening Done: Yes 60720 - PHQ-9 Billing: Yes Source: Developed by Drs. Lyndon Perales, Wendy Dela Cruz, Chalo Beavers and colleagues, with an educational leslie from [employer]. Thrive Questionnaire Date Thrive assessed: 09/19/24 I am a: Patient What is your living situation today?: I have a steady place to live Within the past 12 months, did the food you bought not last and you didn't have the money to get more?: Never true Within the past 12 months, did you worry whether your food would run out before you got money to buy more?: Never true Do you have trouble paying for medicines?: No Do you have trouble getting transportation to medical appointments?: No Do you have trouble paying your heating and electricity bill?: No Do you have trouble taking care of your child, family member or friend?: No Do you have trouble with day-to-day activities such as bathing, preparing meals, shopping, managing finances, etc.?: No Are you currently unemployed and looking for a job?: No Are you interested in more education?: No Please select the resources that you would like help with: None Currently or been in a relationship where the following occur: No concerns reported THRIVE Score: 0 AUDIT C Alcohol Use Questionnaire (AUDIT-C) 1. How often do you have a drink containing alcohol?: 2-4 times a month 2. How many drinks containing alcohol do you have on a typical day when you are drinking?: 1 or 2 3. How often do you have six or more drinks on one occasion?: Never Total Score: 2 Score Reviewed/Action Taken: Yes JUD-7 AMB Questionnaire JUD-7 Date JUD - 7 assessed: 09/19/24 Feeling nervous, anxious, or on edge: 0 = Not at all Not being able to stop or control worryin = Not at all Worrying too much about different things: 0 = Not at all Trouble relaxin = Not at all Being so restless that it is hard to sit still: 0 = Not at all Becoming easily annoyed or irritable: 0 = Not at all Feeling afraid as if something awful might happen: 0 = Not at all Total JUD-7 score (0-4 normal; 5-9 mild; 10-14 moderate; 15-21 severe): 0 Source: Developed by Drs. Lyndon Perales, Wendy Dela Cruz, Chalo Beavers and colleagues, with an educational leslie from [employer]. JUD-7 Assessment Billing JUD-7 Assessment Tool: JUD-7 Assessment 26056 Physical exam (Primary Care) Vital Signs: Last Vital Signs Pulse 90 09/19/24 10:37 BP 140/82 H 09/19/24 10:37 Pulse Ox 98 09/19/24 10:37 Oxygen Delivery Method Room Air 09/19/24 10:37 BMI result Body Mass Index 24.7 Tobacco/Smoking Status: Tobacco use Status Tobacco use date assessed 09/19/24 09/19/24 10:41 Patient Tobacco Use Status Former Tobacco user 09/19/24 10:41 Tobacco use type Cigarette 09/19/24 10:41 e-Cigarette/Vaping Use Never Used 09/19/24 10:41 PHQ-9: PHQ-9 Score PHQ-9: Total score 0 09/19/24 10:50 Depression Screening Interpretation: Negative Thrive Assessment: Date of Thrive Assessment Date Thrive assessed 09/19/24 09/19/24 10:41 Currently or been in a relationship where the following occur: No concerns reported Coding Level of Care Code Est Pt Level 3 (42495) Diagnoses Hypertension, essential I10 Additional Codes JUD-7 Assessment Billing - JUD-7 Assessment Tool: JUD-7 Assessment 02482 ([id number]) PHQ-9 - 45636 - PHQ-9 Billing: Yes ([id number]) Assessment & Plan Assessment & Plan (1) Hypertension, essential: Code(s): I10 - Essential (primary) hypertension Category: Medical Plan History - The patient is a 64-year-old female presenting with a need for a refill of her blood pressure medication. - She has essential hypertension and reported inadvertent non-adherence to her medication for two days. - patient was struggling with the insurance missed her regular appointment Problem List - Essential Hypertension Patient Instructions - Begin taking the blood pressure medication daily as prescribed. - Complete the necessary laboratory tests as advised. - Monitor blood pressure regularly at home. - Follow up for routine checks every six months. Medications: Refilled atenolol-chlorthalidone 50-25 mg 1 tab PO DAILY 90 days 90 tabs 1RF I10 - Essential (primary) hypertension
--- OUTSIDE RECORDS SUMMARY | 2024-09-19 11:23 | XMS_ITS ---
Author Organization [facility] Address [address] [place] [address] Care Team Providers Care Pharmacy Analyst Name Role Phone TERESE, DERREKDevika Primary Care Provider Fern Haney [phone] REASON FOR VISIT Annual (YELLOW FORM DONE) Medications Medication SIG (Take, Route, Frequency, Duration) Notes Start Date End Date Status Vitamin D3 25 MCG (1000 UT) 1 capsule Or ally Once a day for 30 day(s) Active Vitamin C 500 MG as directed Orally Active Allergy Medication A ctive Atenolol-Chlorthalidone 50-25 MG Oral for 90 Active valACYclovir HCl 1 GM 1 tablet Orally Tw ice a day at earlies signs of symptoms x 3 days then prn for 14 days 03/20/2020 Active Vitamin B12 1000 MCG 1 tablet Orally Onc e a day for 30 day(s) Active Encounters Encounter Location Date Provider Diagnosis [facility] [place] [address] [facility] [address] [place] [address] 08/09/2023 Fern Barros Plan Of Treatment Next Appt Details Provider Name:Fern galvez, 11/24/2024 09:00:00 AM, [address] [facility] [facility] [address], [place], [address], Progress Notes * CAROLYN ROQUEDOB:1960 (64 yo F)Acc No.[id number]:08/09/2023 PROGRESS NOTES Patient:?CAROLYN ROQUE Appointment Provider:?Fern galvez M.D. :1960???Age:63 Y???Sex:Female D ate:08/09/2023 Address: [address] [facility] Pcp:BEE GUDINO Subjective: * Chief Complaints: * ???1. Annual (YELLOW FORM DO NE). * Medical History:?Nasal HSV, Essential (primary) hypertension, Stricture and stenosis of cervix uteri, Right lower quadrant abdominal swelling, mass and lump, Inconclusive mammogram, Mammographic heterogeneous density, bilateral breasts. * Superintendent Mechanical History:?/ Para?0/0.?Sexual activity?currently sexually active.?Last Pap Smear:?03/09/21 NIL, NEG HPV, 10/27/2015 NIL, NEG HRHPV.?Mammogram:?2019, 12/09/15, 50-75% density.?Abnormal Pap Smear:?None.?LMP and menses?menopause.?History of STD's:?none.?Colonoscopy?None.?Bone Density:?None.?IMPORTER EXPORTER HISTORY MISC.?05/23 Hsono showed thin lining11/07/16: DB counsleing done. Mandi lifetime risk of breast cancer 8.3%. No supplemental screening indicated.? * OB History:?Total pregnancies?.? * Medications:?Taking Vitamin B12 1000 MCG Tablet Extended Release 1 tablet Orally Once a day , Taking Vitamin D3 25 MCG (1000 UT) Capsule 1 capsule Orally Once a day , Taking Vitamin C 500 MG Capsule as directed Orally , Taking Allergy Medication , Taking Atenolol-Chlorthalidone 50-25 MG Tablet Oral , Taking valACYclovir HCl 1 GM Tablet 1 tablet Orally Twice a day at earlies signs of symptoms x 3 days then prn Objective: * Vitals:? Assessment: Plan: * Treatment: * Images: Billing Information: * Visit Code:? * Procedure Codes:? * Electronic signature of Lisa Barros MD on 09/19/2024 at 11:22 AM EDT Sign off status: Pending * Appointment Provider:?Fern Barros M.D. Date:?08/09/2023 Generated for Neal toribio/Meño/Monik on:?09/19/2024 11:22 AM EDT
--- OUTSIDE RECORDS SUMMARY | 2024-09-19 11:23 | XMS_ITS ---
Author Organization [employer] [facility] Address [address] [place] [address] Care Team Providers Care Pharmacy Informatics Manager Name Role Phone TERESE, DERREKDevika Primary Care Provider Fern Haney [phone] REASON FOR VISIT SCRIPT Medications Medication SIG (Take, Route, Fr equency, Duration) Notes Start Date End Date Status valACYclovir HCl 1 GM 1 tablet Orally Tw ice a day at earlies signs of symptoms x 3 days then prn for 14 days 03/20/2020 Active Encounters Encounter Location Date Provider Diagnosis [facility] [employer] [facility] [employer] [facility] [address] [place] [address] 06/05/2024 Fern Barros Plan Of Treatment Medication Medication Name Sig Start Date Stop Date Notes valACYclovir HCl 1 GM 1 tablet Orally Tw ice a day at earlies signs of symptoms x 3 days then prn for 14 days 03/20/2020 Next Appt Details Provider Name:Fern galvez, 11/24/2024 09:00:00 AM, [address], [address], [place], [address], Progress Notes * CAROLYN ROQUEDOB:1960 (63 yo F)Acc No.[id number]:06/05/2024 Patient:?CAROLYN ROQUE :1960???Age:63 Y???Sex:Female Address:[address] [place] [address] * Refills? Refill valACYclovir HCl Tablet, 1 GM, Orally, 18 Tablet, 1 tablet, Twice a day at earlies signs of symptoms x 3 days then prn, 14 days, Refills=6 * true * Date:? Generated for Neal toribio/Meño/Alistairitting on:?09/19/2024 11:22 AM EDT
--- OUTSIDE RECORDS SUMMARY | 2024-09-19 11:23 | XMS_ITS ---
Author Organization [employer] [facility] Address [address] [place] [address] Care Team Providers Care Fireworks Display Specialist Name Role Phone BEE GUDINO Primary Care Provider Fern Haney Unavailable [phone] Allergies No Known Allergies Results Component Value Reference Range Notes Urinalysis Reviewed date:11/19/2023 09:27:52 AM Interpretation: Performing Lab: Notes/Report: PH 8.0 PROTEIN TR GLUCOSE NEG BLOOD NEG [id number] IGP No Culture 30 Plus Reviewed date:11/22/2023 04:29:35 PM Interpretation: Performing Lab:[facility], [address], [address], [place], Phone - [phone], Director - [facility] Notes/Report: Clinical Information:[id number] Dates / Results....03/09/21 NIL Other..............Post Menopausal No. of containers..01 ThinPrep Vial DIAGNOSIS: NEGATIVE FOR IN TRAEPITHELIAL LESION OR MALIGNANCY. Specimen adequacy: Satisfact ory for evaluation. No endocervical component is identified. Clinician provided ICD10: Z0 1.419 Performed by: Karen quarles, Night Auditor (ASCP) . . Note: The Pap smear is a screening test designed to aid in the detection of premalignant and malignant conditions of the uterine cervix. It is not a diagnostic procedure and should not be used as the sole means of detecting cervical cancer. Both false-positive and false-negative reports do occur. . Test Methodology: This liquid based ThinPrep(R) pap test was screened with the use of an image guided system. HPV Aptima Negative Negative This nucleic acid amplification test detects fourteen high-risk HPV types (16,18,31,33,35,39,45,51,52,56,58 ,59,66,68) without differentiation. HPV Genotype Reflex Criteria not met, HPV Genotype not performed. PDF Report Reviewed date:11/22/2023 04:29:19 PM Interpretation: Performing Lab:[facility], [address], [address], [place], Phone - [phone], Director - [facility] Notes/Report: Clinical Information:[id number] Dates / Results....03/09/21 NIL Other..............Post Menopausal No. of containers..01 ThinPrep Vial REASON FOR VISIT Annual FRAME BUILDER Physical, Annual FRAME BUILDER Physical 60-85+ Medications Medication SIG (Take, Route, Frequency, Duration) Notes Start Date End Date Status Vitamin D3 25 MCG (1000 UT) 1 capsule Or ally Once a day for 30 day(s) PRN Active Vitamin C 500 MG as directed Orally PRN Active valACYclovir HCl 1 GM 1 tablet Orally Tw ice a day at earlies signs of symptoms x 3 days then prn for 14 days 03/20/2020 Active Allergy Medication PRN A ctive Atenolol-Chlorthalidone 50-25 MG Oral for 90 Active Vitamin B12 1000 MCG 1 tablet Orally Onc e a day for 30 day(s) PRN Active Social History Tobacco Use: Social History Observation Description Date Details (start date - stop date) Former Smoker NA - NA Tobacco Use/Smoking Question Answer Notes Are you a former smoker Alcohol Screen (Audit-C) Question Answer Notes Did you have a drink contain ing alcohol in the past year? Yes How often did you have a dri nk containing alcohol in the past year? 4 or more times a week (4 points) How many drinks did you have on a typical day when you were drinking in the past year? 1 or 2 drinks (0 point) Points 4 Sexual History Question Answer Notes Had sex in the past 12 months (vaginal, oral, or anal)? Yes with Men only Tobacco use other than smoking: Question Answer Notes Are you an other tobacco user? No Vital Signs Temperature 97.1 degrees Fahrenheit 11/19/19 24 Blood pressure systolic 110 mm Hg 11/19/19 24 Blood pressure diastolic 80 mm Hg 024 Height 64 in 11/19/2023 Weight 140 lbs 11/19/2023 BMI 24.03 kg/m2 11/19/2023 Encounters Encounter Location Date Provider Diagnosis [address] [place] [address] 11/19/2023 Fern Barros Encounter for gynecological examination (general) (routine) without abnormal findings Z01.419 ; Encounter for screening mammogram for malignant neoplasm of breast Z12.31 ; Benign lipomatous neoplasm of skin and subcutaneous tissue of trunk D17.1 ; Herpesviral infection, unspecified B00.9 and Dense breasts, unspecified R92.30 Assessments Encounter Date Diagnosis (ICD Code) Assessment Notes Treatment Notes Treatment Clinical Notes Section Notes 11/19/2023 Encounter for gynecological examination (general) (routine) without abnormal findings (ICD-10 - Z01.419) PAP TEST WITH HPV TYPING WAS OBTAINED. 11/19/2023 Encounter for screening mammogram for malignant neoplasm of breast (ICD-10 - Z12.31) REGULAR MAMMOGRAMS AND SBE'S WERE RECOMMENDED. 11/19/2023 Benign lipomatous neoplasm of skin and subcutaneous tissue of trunk (ICD-10 - D17.1) DISCUSSED FINDINGS, DX AND TX OPTIONS. RECOMMENDED SHE HAVE THIS EVALUATED AND EXCISED BY A SURGEON. PAT WAS REFERRED TO DR SALAZAR. 11/19/2023 Herpesviral infection, unspecified (ICD-10 - B00.9) DISCUSSED ORAL HSV ATTACKS. SHE TAKES VALTREX EPISODICALLY AND HAS ENOUGH REFILLS. SHE HAS LESS FREQUENT ATTACKS. 11/19/2023 Dense breasts, unspecified (ICD-10 - R92.30) DISCUSSED DENSE BREASTS ON MAMMOGRAM AND ITS IMPLICATIONS. 3D MAMMOGRAMS WERE RECOMMENDED. Plan Of Treatment Treatment Notes Assessment Notes Encounter for gynecological examination (general) (routine) without abnormal findings PAP TEST WITH HPV TYPING WAS OBTAINED. Encounter for screening mamm ogram for malignant neoplasm of breast REGULAR MAMMOGRAMS AND SBE'S WERE RECOMMENDED. Benign lipomatous neoplasm o f skin and subcutaneous tissue of trunk DISCUSSED FINDINGS, DX AND TX OPTIONS. RECOMMENDED SHE HAVE THIS EVALUATED AND EXCISED BY A SURGEON. PAT WAS REFERRED TO DR SALAZAR. Herpesviral infection, unspecified DISCU SSED ORAL HSV ATTACKS. SHE TAKES VALTREX EPISODICALLY AND HAS ENOUGH REFILLS. SHE HAS LESS FREQUENT ATTACKS. Dense breasts, unspecified DISCUSSED DENSE BREASTS ON MAMMOGRAM AND ITS IMPLICATIONS. 3D MAMMOGRAMS WERE RECOMMENDED. Pending Test Test Name Order Date MAMMOGRAM, SCREENING 11/19/2023 MM Digital Mammo Screening 11/19/2023 Next Appt Details Follow Up: 1 Year, Reason: Provider Name:Fern galvez, 11/24/2024 09:00:00 AM, [address], [address], [place], [address], Progress Notes * CAROLYN ROQUEDOB:1960 (63 yo F)Acc No.[id number]:11/19/2023 PROGRESS NOTES Patient:?JACQUELINECAROLYN OCHOA Appointment Provider:?Fern galvez M.D. :1960???Age:63 Y???Sex:Female D ate:11/19/2023 Address:[address] [place], [place] [id number] Pcp:BEE GUDINO Subjective: * Chief Complaints: * ???Annual FRAME BUILDER PhysicalAnnual FRAME BUILDER Physical 60-85+ * HPI: ???New/Follow-up Patient Consult:? PAT ENTERED MENOPAUSE IN HER 50'S.? SHE IS NOT SEXUALLY ACTIVE AT THE PRESENT TIME. SHE NOTED A NONTENDER MOVABLE MASS ON HER RIGHT BACK BELOW THE SHOULDER BLADE A FEW MONTHS AGO.? NO PAINS.?? 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 HER LAST MAMMOGRAM DONE IN 2022 SHOWED DENSE BREASTS AND WAS NORMAL.? HER LIFETIME BREAST CA RISK IS 8.3%. HER LAST PAP TEST IN 2020 WAS NEGATIVE AND HPV NEGATIVE. SHE HAS NO RISK FACTORS NECESSITATING A BMD AT THIS TIME. SHE HAS NOT HAD A COLONOSCOPY DONE YET. PFIZER X 2. ???Annual:? Patient presents for annual exam, ages 60-85, postmenopausal. ?General Health Maintenance:?Current breast complaints:?no breast pain, mass, discharge, or skin changes ?Urinary problems:?patient reports no urinary health problems or bowel health problems ?Calcium intake:?takes adequate calcium via diet and supplementation ?Significant FRAME BUILDER problems:?no significant teaching associate symptoms or problems * ROS:?general:?no?chest pain.?no?palpitations.?no?headache.?no?cough.?no?shortness of breath.?no?fever.?no?unexplained weight loss.?no?nausea/vomiting.?no?change in bowel movements.?no blood in stool.?no?genitourinary complaints.?no?skin complaints.? * Medical History:? * Sports Specialist History:?/ Para?0/0.?Sexual activity?currently sexually active.?Last Pap Smear:?03/09/21 NIL, NEG HPV, 10/27/2015 NIL, NEG HRHPV.?Mammogram:?2019, 12/09/15, 50-75% density.?Abnormal Pap Smear:?None.?LMP and menses?menopause.?History of STD's:?none.?Colonoscopy?None.?Bone Density:?None.?FRAME BUILDER HISTORY MISC.?05/23 Hsono showed thin lining11/07/16: DB counsleing done. Mandi lifetime risk of breast cancer 8.3%. No supplemental screening indicated.? * OB History:?Total pregnancies?.? * Surgical History:?No Surgica l History documented. * Hospitalization/Major Diagno stic Procedure:?No Hospitalization History. * Family History:?Mother: dece ased.?Father: , diagnosed with Unspecified heart disease.?Siblings: Sister: CHF.?NIECE: Breast Cancer, Pre Menopause.? Sister have COPD and problems with her kidney. * Social History:?Tobacco Use:?Tobacco Use/Smoking?Are you a?former smoker ?Tobacco use other than smoking?Are you an other tobacco user??No ???Sexual History:?Sexual History?Had sex in the past 12 months (vaginal, oral, or anal)??Yes ?with?Men only ?Details of Sexual History?Are you sexually active??Yes ???Drugs/Alcohol:?Drugs?Have you used drugs other than those for medical reasons in the past 12 months??No ?Alcohol Screen (Audit-C)?Did you have a drink containing alcohol in the past year??Yes ?How often did you have a drink containing alcohol in the past year??4 or more times a week (4 points) ?How many drinks did you have on a typical day when you were drinking in the past year??1 or 2 drinks (0 point) ?Points?4 ???Miscellaneous:?Caffeine: yes, frequency:, 4 cups a day of coffee. ?Exercise: no. ?Home smoke detector use: yes. ?Marital status: single. ?Natural support system: yes. ?Occupation: Works full-time. ?Sexually active: yes. * Medications:?TakingVitamin B 12 1000 MCG Tablet Extended Release 1 tablet Orally Once a day , Notes to Pharmacist: PRNVitamin D3 25 MCG (1000 UT) Capsule 1 capsule Orally Once a day , Notes to Pharmacist: PRNVitamin C 500 MG Capsule as directed Orally , Notes to Pharmacist: PRNAllergy Medication , Notes to Pharmacist: PRNAtenolol-Chlorthalidone 50-25 MG Tablet Oral valACYclovir HCl 1 GM Tablet 1 tablet Orally Twice a day at [facility] signs of symptoms x 3 days then prn Medication List reviewed and reconciled with the patientTaking Vitamin B12 1000 MCG Tablet Extended Release 1 tablet Orally Once a day , Notes to Pharmacist: PRNTaking Vitamin D3 25 MCG (1000 UT) Capsule 1 capsule Orally Once a day , Notes to Pharmacist: PRNTaking Vitamin C 500 MG Capsule as directed Orally , Notes to Pharmacist: PRNTaking Allergy Medication , Notes to Pharmacist: PRNTaking Atenolol-Chlorthalidone 50-25 MG Tablet Oral Taking valACYclovir HCl 1 GM Tablet 1 tablet Orally Twice a day at [facility] signs of symptoms x 3 days then prn Medication List reviewed and reconciled with the patient * Allergies:?N.K.D.A.no[Allerg ies Verified] Objective: * Vitals:?Ht: 64 in, Wt:140lbs , BMI:24.03Index, BP:110/80mm Hg, Temp:97.1F. * Examination: ???General Exam: ?CONSTITUTIONAL:?General Appearance:?alert, in no acute distress, normal, well nourished ?NECK/THYROID:?Inspection/Palpation:?normal ?Thyroid:?normal size and shape ?RESPIRATORY:?Auscultation: clear to auscultation bilaterally, Respiratory Effort: normal.?CARDIOVASCULAR:?Auscultation: regular rate and rhythm.?BREAST, Right:?Inspection/Palpation:?no discharge, no masses present, no nipple retraction, no skin changes, no skin dimpling, no tenderness, no lymphadenopathy, no axillary mass, no axillary tenderness ?BREAST, Left:?Inspection/Palpation:?no discharge, no masses present, no nipple retraction, no skin changes, no skin dimpling, no tenderness, no lymphadenopathy, no axillary mass, no axillary tenderness ?GASTROINTESTINAL:?Abdomen:?no masses, nontender, nondistended ?Liver and Spleen:?normal ?Hernias:?no hernias present, no inguinal adenopathy ?MUSCULOSKELETAL:?Inspection/Palpation:?no clubbing, cyanosis, or edema ?SKIN:?Skin:?NON TENDER SOFT MASS UNDER THE RIGHT SHOULDER BLADE ON HER BACK ?NEURO/PSYCH:?Orientation:?time , place, person ?Mood/Affect:?normal?Genitourinary: ?EXTERNAL GENITALIA:?External Genitalia:?normal, no lesions ?VAGINA:?Vagina:?normal appearance, no abnormal discharge, no lesions ?BLADDER:?Bladder:?no mass, nontender ?URETHRA:?Urethra:?no erythema or lesions present ?CERVIX:?Cervix:?no lesions, nontender ?UTERUS:?Uterus:?nontender, normal contour, normal mobility, normal size ?ADNEXA:?Adnexa:?no masses, no tenderness ?ANUS AND PERINEUM:?Anus/Perineum:?visually normal??? Assessment: * Assessment: 1.?Encounter for gynecologic al examination (general) (routine) without abnormal findings - Z01.419?2.?Encounter for screening mammogram for malignant neoplasm of breast - Z12.31?3.?Benign lipomatous neoplasm of skin and subcutaneous tissue of trunk - D17.1?4.?Herpesviral infection, unspecified - B00.9?5.?Dense breasts, unspecified - R92.30? Plan: * Treatment: ?LAB: Urinalysis (Collection Date & Time - 11/19/2023)* ? Value Reference Range ?PH 8.0 * ?PROTEIN TR * ?GLUCOSE NEG * ?BLOOD NEG Notes: PAP TEST WITH HPV TYPING WAS OBTAINED.??2.?Encounter for screening mammogram for malignant neoplasm of breast?Imaging: MM Digital Mammo Screening Notes: REGULAR MAMMOGRAMS AND SBE'S WERE RECOMMENDED.??3.?Benign lipomatous neoplasm of skin and subcutaneous tissue of trunk? Notes: DISCUSSED FINDINGS, DX AND TX OPTIONS. RECOMMENDED SHE HAVE THIS EVALUATED AND EXCISED BY A SURGEON. PAT WAS REFERRED TO DR SALAZAR.? 4.?Herpesviral infection, unspecified? Notes: DISCUSSED ORAL HSV ATTACKS. SHE TAKES VALTREX EPISODICALLY AND HAS ENOUGH REFILLS. SHE HAS LESS FREQUENT ATTACKS.??5.?Dense breasts, unspecified? Notes: DISCUSSED DENSE BREASTS ON MAMMOGRAM AND ITS IMPLICATIONS. 3D MAMMOGRAMS WERE RECOMMENDED.?? * Imaging:? * ?Imaging: MAMMOGRAM, SCR EENING * Procedure Codes:? * Preventive Medicine:? ??YOUR PREVENTIVE WELLNESS PLAN:?Osteoporosis prevention?Calcium, D, strength training.?Breast Cancer Screening (Mammogram):?annually.?Cervical Cancer Screening (Pap Smear):?q 3 years with HPV screen.?Colorectal Cancer Screening:?q 10 years.? * Follow Up:?1 Year * Images: Billing Information: * Visit Code:? [id number] Preventive Care Est Pt. Age 65 and over. * Procedure Codes:? * Sign off status: Completed true * Appointment Provider:?Fern Barros M.D. Date:?11/19/2023 Generated for Neal toribio/Meño/Alistairitting on:?09/19/2024 11:23 AM EDT History and Physical Notes * HPI (History of Present Illness) Category Sub-Category Detail Notes Category Not es New/Follow-up Patient Consult PAT ENTERED MENOPAUSE IN HER 50'S. SHE IS NOT SEXUALLY ACTIVE AT THE PRESENT TIME. SHE NOTED A NONTENDER MOVABLE MASS ON HER RIGHT BACK BELOW THE SHOULDER BLADE A FEW MONTHS AGO. NO PAINS. 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 HER LAST MAMMOGRAM DONE IN 2022 SHOWED DENSE BREASTS AND WAS NORMAL. HER LIFETIME BREAST CA RISK IS 8.3%. HER LAST PAP TEST IN 2020 WAS NEGATIVE AND HPV NEGATIVE. SHE HAS NO RISK FACTORS NECESSITATING A BMD AT THIS TIME. SHE HAS NOT HAD A COLONOSCOPY DONE YET. PFIZER X 2. Annual General Health Maintenance: Current breast complaints:: no breast pain, mass, discharge, or skin changes Urinary problems:: patient r eports no urinary health problems or bowel health problems Calcium intake:: takes adequ ate calcium via diet and supplementation Significant FRAME BUILDER problems:: n o significant teaching associate symptoms or problems Examination Category Sub-Category Detail Notes Category Not es General Exam CONSTITUTIONAL: General Appearan ce:: alert, in no acute distress, normal, well nourished NECK/THYROID: Inspection/Palpation:: normal Thyroid:: normal size and shape RESPIRATORY: Auscultation: clear to auscultation bilaterally, Respiratory Effort: normal CARDIOVASCULAR: Auscultation: regula r rate and rhythm GASTROINTESTINAL: Abdomen:: no masses, nontender , nondistended Liver and Spleen:: normal Hernias:: no hernias present, no inguina l adenopathy MUSCULOSKELETAL: Inspection/Palpation :: no clubbing, cyanosis, or edema SKIN: Skin:: NON TENDER SOFT MASS UNDER THE RIGHT SHOULDER BLADE ON HER BACK NEURO/PSYCH: Orientation:: time , place, pers on Mood/Affect:: normal BREAST, Right: Inspection/Palpation :: no discharge, no masses present, no nipple retraction, no skin changes, no skin dimpling, no tenderness, no lymphadenopathy, no axillary mass, no axillary tenderness BREAST, Left: Inspection/Palpation :: no discharge, no masses present, no nipple retraction, no skin changes, no skin dimpling, no tenderness, no lymphadenopathy, no axillary mass, no axillary tenderness Genitourinary EXTERNAL GENITALIA: External Genitalia:: nor mal, no lesions VAGINA: Vagina:: normal appearance, no a bnormal discharge, no lesions BLADDER: Bladder:: no mass, nontender URETHRA: Urethra:: no erythema or lesions present CERVIX: Cervix:: no lesions, nontender UTERUS: Uterus:: nontender, normal conto ur, normal mobility, normal size ADNEXA: Adnexa:: no masses, no tendernes s ANUS AND PERINEUM: Anus/Perineum:: visually norm al
--- OUTSIDE RECORDS SUMMARY | 2024-09-19 11:23 | XMS_ITS | Patient Health Record ---
Author Organization [employer] [facility] Address [address] [place] [address] Care Team Providers Care Coal Hiker Name Role Phone BEE GUDINO Primary Care Provider Fern Haney Unavailable [phone] Allergies No Known Allergies Results Component Value Reference Range Notes PDF Report Reviewed date:11/22/2023 04:29:19 PM Interpretation: Performing Lab:[facility], [address], [address], [place], Phone - [phone], Director - [facility] Notes/Report: Clinical Information:[id number] Dates / Results....03/09/21 NIL Other..............Post Menopausal No. of containers..01 ThinPrep Vial [id number] IGP No Culture 30 Plus Reviewed date:11/22/2023 04:29:35 PM Interpretation: Performing Lab:[facility], [address], [address], [place], Phone - [phone], Director - [facility] Notes/Report: Clinical Information:[id number] Dates / Results....03/09/21 NIL Other..............Post Menopausal No. of containers..01 ThinPrep Vial DIAGNOSIS: NEGATIVE FOR IN TRAEPITHELIAL LESION OR MALIGNANCY. Specimen adequacy: Satisfact ory for evaluation. No endocervical component is identified. Clinician provided ICD10: Z0 1.419 Performed by: Karen quarles, Directory Operator (ASCP) . . Note: The Pap smear [...] Criteria not met, HPV Genotype not performed. Urinalysis Reviewed date:11/19/2023 09:27:52 AM Interpretation: Performing Lab: Notes/Report: PH 8.0 PROTEIN TR GLUCOSE NEG BLOOD NEG Reason For Referral No Information Medications Medication SIG (Take, Route, Frequency, Duration) Notes Start Date End Date Status valACYclovir HCl 1 GM 1 tablet Orally Tw ice a day at earlies signs of symptoms x 3 days then prn for 14 days 03/20/2020 Active Vitamin D3 25 MCG (1000 UT) 1 capsule Or ally Once a day for 30 day(s) PRN Active Vitamin C 500 MG as directed Orally PRN Active Vitamin B12 1000 MCG 1 tablet Orally Onc e a day for 30 day(s) PRN Active Allergy Medication PRN A ctive Atenolol-Chlorthalidone 50-25 MG Oral for 90 Active Social History Tobacco Use: Social History [...] Are you an other tobacco user? 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 Heterosexual Problems Problem Type SNOMED Code ICD Code Onset Dates Problem Status W/U Status Risk Notes Problem Stenosis of cervix (89342230) Stricture and stenosis of cervix uteri (N88.2) Active confirmed Problem Essential hypertension (21374557) Essential (primary) hypertension (I10) Active confirmed Problem Herpes simplex without complication (211111082) Herpes simplex without mention of complication (054.9) Active confirmed Major Vital Signs Temperature 97.1 degrees Fahrenheit 11/19/2023 Blood pressure diastolic 80 mm Hg 11/19/2023 Height 64 in 11/19/2023 Blood pressure systolic 110 mm Hg 11/19/2023 Weight 140 lbs 11/19/2023 BMI 24.03 kg/m2 11/19/2023 Encounters Encounter Location Date Provider Diagnosis [employer] [facility] [employer] [address] [address] 11/19/2023 Fern Barros Encounter for gynecological examination (general) (routine) without abnormal findings Z01.419 ; Encounter for screening mammogram for malignant neoplasm of breast Z12.31 ; Benign lipomatous neoplasm of skin and subcutaneous tissue of trunk D17.1 ; Herpesviral infection, unspecified B00.9 and Dense breasts, unspecified R92.30 [facility] [employer] [address] [address] 06/05/2024 Fern Barros Assessments Encounter Date Diagnosis (ICD Code) Assessment [...] 3D MAMMOGRAMS WERE RECOMMENDED. Plan Of Treatment Pending Test Test Name Order Date MAMMOGRAM, SCREENING 04/04/2022 MAMMOGRAM, SCREENING 11/19/2023 Ultrasound : Pelvic 01/15/2018 ANTI-HEPATITIS C 03/03/2020 HEP. B SURF. AG 03/03/2020 THIN PREP,HPV,POLO IF HPV+ (>29YR)(SCRN) 10/27/2015 MM Digital Mammo Screening 11/07/2016 MM Digital Mammo Screening 01/15/2018 MM Digital Mammo Screening 10/27/2015 MM Digital Mammo Screening 04/04/2022 MM Digital Mammo Screening 11/19/2023 SYPHILIS TESTING 03/03/2020 HIV AB-AG 4TH GENERATION 03/03/2020 Next Appt Details Provider Name:Fern galvez, 11/24/2024 09:00:00 AM, [address], [address], [place], [address], Insurance Providers Payer Name Payer Address Payer Phone Subscriber Number Group Number Insured Name Patient Relationship to Insured Coverage Start Date Coverage End Date [employer] [address] KAYLEE SCOTT [address] [phone] [id number] CAROLYN ROQUE Self - patient is the insured Medical (General) History Medical History History ICD Code 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
== END 2024-09-19 10:53 | disposition home or self-care (01) ==
LOC: HO.HMCC 10:34
PROVIDERS: PCP Internal Medicine; Visit Provider Internal Medicine
DX: I10 Essential (primary) hypertension (principal)

== ENCOUNTER → 2024-09-19 10:33 | Outpatient (BNVA) | payer OTHER, SELFPAY | PROVIDERS: PCP Internal Medicine; Visit Provider Internal Medicine | DX: I10 Essential (primary) hypertension (principal) | CPT/HCPCS: 96127 ==

== ENCOUNTER 2024-12-06 07:59 | Outpatient (REF) | payer OTHER, SELFPAY ==
[2024-12-06 11:04] LABS: MANUAL DIFF FLAG NO
[2024-12-06 11:18] LABS: Basophils Absolute Auto 0.1 X10*3/uL (0.0-0.2); Basophils Percent Auto 0.9 % (0-2); Eosinophils Absolute Auto 0.4 X10*3/uL (0.0-0.4); Hematocrit 37.3 % (37.0-47.0); Hemoglobin 13.6 g/dl (12.0-16.0); Imm Gran Abs Auto 0.01 X10*3/uL (0.00-0.03); Imm Gran Pct Auto 0.2 % (0.0-0.4); Lymphocytes Absolute Auto 1.7 X10*3/uL (1.2-4.9); Lymphocytes Percent Auto 32.3 % (20-40); Mean Corpuscular HGB Conc 36.5 g/dl (31.0-35.0); Mean Corpuscular Hemoglobin 33.9 pg (27.0-33.0); Mean Platelet Volume 11.6 fL (9.4-12.3); Monocytes Absolute Auto 0.4 X10*3/uL (0.1-1.2); Neutrophils Absolute Auto 2.8 x10*3/uL (2.0-8.3); Neutrophils Percent Auto 52.6 % (45-73); Platelet Count 290 X10*3/uL (160-400); Red Blood Count 4.01 X10*6/uL (4.20-5.50); Red Cell Distribution Width 12.6 % (11.0-16.0); White Blood Count 5.3 X10*3/uL (4.8-10.8)
[2024-12-06 11:27] LABS: Alanine Aminotransferase 34 U/L (0-31); Albumin Level 4.5 g/dL (3.5-5.0); Alkaline Phosphatase 77 U/L (39-117); Anion Gap 10 (12-20); Aspartate Amino Transferase 25 U/L (5-31); Blood Urea Nitrogen 20 mg/dL (9-16); Calcium 9.2 mg/dL (8.4-10.2); Carbon Dioxide 30 mmol/L (22-29); Chloride 101 mmol/L (96-108); Estimated Glomerular Filt Rate > 60; Glucose Random 96 mg/dL (60-115); Potassium 3.7 mmol/L (3.3-5.1); Sodium 137 mmol/L (135-145); Total Protein 6.9 g/dL (6.5-8.0)
[2024-12-06 11:47] LABS: TSH reflex Free T4 3.41 uIU/mL (0.32-4.0)
[2024-12-06 11:51] LABS: Vitamin B12 406 pg/mL (200-900)
[2024-12-09 02:18] LABS: LDL Cholesterol Direct 153 mg/dL (<100)
== END 2024-12-06 08:00 | disposition home or self-care (01) ==
LOC: HO.HMGCLDS 07:59
PROVIDERS: PCP Internal Medicine; Visit Provider Internal Medicine
DX: E87.1 Hypo-osmolality and hyponatremia (principal); J43.9 Emphysema, unspecified; I10 Essential (primary) hypertension
CPT/HCPCS: 36415; 80053; 82607; 83721; 84443; 85025

== ENCOUNTER 2025-02-17 10:33 | Outpatient (REF) | payer OTHER, SELFPAY ==
--- OUTSIDE RECORDS SUMMARY | 2024-11-24 05:00 | XMS_ITS ---
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 Social History Tobacco Use: Social History [...] Risk Notes Problem Herpes simplex viral infection (88743452) Herpesviral infection, unspecified (B00.9) Active confirmed Encounters Encounter Location Date Provider Diagnosis [facility] [address] [employer] [facility] [address] [place] [address] 11/24/2024 Fern Barros Plan Of Treatment Next Appt Details Provider Name:Fern galvez, 03/09/2025 08:40:00 AM, [address], [address], [place], [address], Progress Notes * CAROLYN ROQUEDOB:1960 (64 yo F)Acc No.[id number]:11/24/2024 PROGRESS NOTES Patient: CAROLYN MOLINA Appointment Provider: Devika Barros M.D. :1960 A ge:64 Y S ex:Female Date:11/24/2024 Address:[address] [place], [place] [id number] Pcp:BEE GUDINO Subjective: * Chief Complaints: * 1 . 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 * Medical History: N tawana HSV, Essential (primary) hypertension, Stricture and stenosis of cervix uteri, Right lower quadrant abdominal swelling, mass and lump, Inconclusive mammogram, Mammographic heterogeneous density, bilateral breasts, Dense breasts, unspecified, Herpesviral infection, unspecified, Benign lipomatous neoplasm of skin and subcutaneous tissue of trunk. * Scheduling Specialist History: G ravida/ Para 0 /0. S [...] Electronic signature of Lisa Barros MD on 02/17/2025 at 12:23 PM EDT Sign off status: Pending * Appointment Provider: Devika Barros M.D. Date: 0 11/24/2024 Generated for Neal toribio/Meño/Alistairitting on: 0 02/17/2025 12:23 PM EDT
--- OUTSIDE RECORDS SUMMARY | 2025-02-17 12:23 | XMS_ITS | Patient Health Record ---
Author Organization [facility] Address [address] [address] Care Team Providers Care Rn Staff Name Role Phone BEE GUDINO Primary Care Provider Fern Haney Unavailable [phone] Allergies No Known Allergies Reason For Referral No Information Medications Medication SIG (Take, Route, Frequency, Duration) Notes Start Date End Date Status valACYclovir HCl 1 GM 1 tablet Orally Tw ice a day at earlies signs of symptoms x 3 days then prn; Duration: 14 days 03/20/2020 Active Vitamin D3 25 MCG (1000 UT) 1 capsule Or ally Once a day; Duration: 30 day(s) PRN Active Vitamin C 500 MG as directed Orally PRN Active Vitamin B12 1000 MCG 1 tablet Orally Onc e a day; Duration: 30 day(s) PRN Active Allergy Medication PRN A ctive Atenolol-Chlorthalidone 50-25 MG Oral; Duration: 90 Active Social History Tobacco Use: Social [...] has it been since you last smoked? Mya ter than 10 years Section Notes: MARITAL STATUS: single, significant other [...] Status Risk Notes Problem Stenosis of cervix (23449005) Stricture and stenosis of cervix uteri (N88.2) Active confirmed Problem Essential hypertension (20422653) Essential (primary) hypertension (I10) Active confirmed Problem Herpes simplex viral infection (45099624) Herpesviral infection, unspecified (B00.9) Active confirmed Problem Herpes simplex without complication (613888881) Herpes simplex without mention of complication (054.9) Active confirmed Major Encounters Encounter Location Date Provider Diagnosis [address] [address] 06/05/2024 Fern Barros Plan Of Treatment Pending Test Test Name [...] 03/03/2020 Next Appt Details Provider Name:Fern galvez, 03/09/2025 08:40:00 AM, [address] [facility], [address], [place], [address], Insurance Providers Payer Name Payer Address Payer Phone Subscriber Number Group Number Insured Name Patient Relationship to Insured Coverage Start Date Coverage End Date [facility] [address] [place] [place] [address] [id number] CAROLYN ROQUE Self - patient is the insured Medical (General) History Medical History History ICD Code Nasal HSV B00.9 Essential (primary) hypertension I10 Stricture and stenosis of cervix uteri N 88.2 Right lower quadrant abdominal swelling, mass and lump R19.03 Inconclusive mammogram R92.2 Mammographic heterogeneous density, bila teral breasts R92.333 Dense breasts, unspecified R92.30 Herpesviral infection, unspecified B00.9 Benign lipomatous neoplasm of skin and s ubcutaneous tissue of trunk D17.1 Surgical History Surgery Date(Month/Year)
== END 2025-02-17 10:34 | disposition home or self-care (01) ==
LOC: HO.MAMMO 10:33
PROVIDERS: PCP Internal Medicine; Visit Provider Internal Medicine
DX: Z12.31 Encounter for screening mammogram for malignant neoplasm of breast (principal)
CPT/HCPCS: 77063; 77067

== ENCOUNTER → 2025-02-17 10:45 | Outpatient (BNV) | payer OTHER, SELFPAY | PROVIDERS: PCP Internal Medicine; Visit Provider Internal Medicine | DX: Z12.31 Encounter for screening mammogram for malignant neoplasm of breast (principal) | CPT/HCPCS: 77063; 77067 ==

== ENCOUNTER 2025-03-25 14:22 | Outpatient (AMB) | payer OTHER, SELFPAY ==
--- OUTSIDE RECORDS SUMMARY | 2024-11-24 05:00 | XMS_ITS ---
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 Yes with Men only Tobacco use other than smoking: Question Answer Notes Are you an other tobacco user? No AUDIT-C (Standard) Question Answer Notes Did you have a drink contain ing alcohol in the past year? Yes How often did you have a dri nk containing alcohol in the past year? 2 to 4 times a month (2 points) How many drinks did you have on a typical day when you were drinking in the past year? 1 or 2 drinks (0 point) How often did you have six o r more drinks on one occasion in the past year? Never (0 point) Points 2 Interpretation Negative Tobacco Control (Standard) Question Answer Notes Tobacco use: Former smoker How long has it been since you last smoked? Grea ter than 10 years Problems Problem Type SNOMED Code ICD Code Onset Dates Problem Status W/U Status Risk Notes Problem Herpes simplex viral infection (43764947) Herpesviral infection, unspecified (B00.9) Active confirmed Encounters Encounter Location Date Provider Diagnosis [facility] [address] [facility] [address] [place] [address] 11/24/2024 Fern Barros Plan Of Treatment Next Appt Details Provider Name:Fern galvez, 03/29/2026 08:40:00 AM, [address], [address], [place], [address], Progress Notes * CAROLYN ROQUEDOB:1960 (64 yo F)Acc No.[id number]:11/24/2024 PROGRESS NOTES Patient: CAROLYN MOLINA Appointment Provider: Devika Barros M.D. :1960 A ge:64 Y S ex:Female Date:11/24/2024 Address:[address] [place], [place] [id number] Pcp:BEE GUDINO Subjective: * Chief Complaints: * 1 . 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 * Medical History: N tawana HSV, Essential (primary) hypertension, Stricture and stenosis of cervix uteri, Right lower quadrant abdominal swelling, mass and lump, Inconclusive mammogram, Mammographic heterogeneous density, bilateral breasts, Dense breasts, unspecified, Herpesviral infection, unspecified, Benign lipomatous neoplasm of skin and subcutaneous tissue of trunk. * Benefits Consultant History: G ravida/ Para 0 /0. S exual activity c urrently sexually active. L ast Pap Smear: NIL, NEG HPV, 03/09/21 NIL, NEG HPV, 10/27/2015 NIL, NEG HRHPV. M ammogram: 2 020, 12/09/15, 50-75% density. A bnormal Pap Smear: N one. L MP and menses m enopause. H istory of STD's: n one. C olonoscopy N one. B one Density: N one. G YN HISTORY MISC. 1 07/24 Hsono showed thin lining11/07/16: DB counsleing done. Mandi lifetime risk of breast cancer 8.3%. No supplemental screening indicated. * OB History: T otal pregnancies G 0 P0000. * Social History: T obacco Use: T obacco use other than smoking A re you an other tobacco user? N o Tobacco Control (Standard) T obacco use: F ormer smoker H ow long has it been since you last smoked??Greater than 10 years S exual History: S exual History H ad sex in the past 12 months (vaginal, oral, or anal)? Y es w ith M en only Details of Sexual History A re you sexually active? Y es D rugs/Alcohol: D rugs H ave you used drugs other than those for medical reasons in the past 12 months? N o M iscellaneous: C affeine: yes, frequency:, 4 cups a day of coffee. Exercise: no. Home smoke detector use: yes. Marital status: single. Natural support system: yes. Occupation: Works full-time. Sexually active: yes. D rug/Alcohol: A SLOAN-C (Standard) D id you have a drink containing alcohol in the past year? Y es H ow often did you have a drink containing alcohol in the past year? 2 to 4 times a month (2 points) H ow many drinks did you have on a typical day when you were drinking in the past year? 1 or 2 drinks (0 point) H ow often did you have six or more drinks on one occasion in the past year? N ever (0 point) P oints 2 I nterpretation N egative Objective: * Vitals: Assessment: Plan: * Treatment: * Images: Billing Information: * Visit Code: * Procedure Codes: * Electronic signature of Lisa Barros MD on 03/25/2025 at 06:09 PM EDT Sign off status: Pending * Appointment Provider: Devika Barros M.D. Date: 0 11/24/2024 Generated for Neal toribio/Meño/Alistairitting on: 1 06:09 PM EDT
[2025-03-25 14:26] VITALS: BP 122/80; PULSE 80; RESP 16; O2SAT 97; BMI 25.0
--- NOTE | 2025-03-25 14:26 | A.OFFPC_ITS ---
Vital Signs 03/25/25 14:26 Height 5 ft 5 in Weight 150 lb BMI 25.0 BP 122/80 Blood Pressure Location Rt brachial Position Sitting Respiration 16 Pulse 80 Pulse Source Pulse Oximeter Pulse Oximetry (%) 97 Oxygen Delivery Method Room Air Intake Visit Reasons: Annual PE Director Payment Required: No Accompanied by: Self / Same As Patient Allergies seasonal Allergy (Unknown, Uncoded 09/19/24 10:40) unknown Medication List - Last Reconciled 03/25/25 by Earlene Chambers MD atenolol-chlorthalidone 50-25 mg 1 tab PO DAILY 90 days estradiol (Vagifem) 10 mcg vaginal DAILY valacyclovir 0 mg PO Tobacco use date assessed: 03/25/25 Dental Screening Dental Screen Date: 03/25/25 Did you have a dental visit in the last 12 months?: Yes Did you have a dental problem in the last 6 months where you did not have access to dental care?: No Was dental information given to patient?: Patient has dentist HPI Annual PE HPI Details History of Present Illness The patient is a 64-year-old female presenting for preventive care and physical examination. Essential hypertension: - Hypertension controlled with Atenolol Chlorthalidone; blood pressure reading was 122/80 mmHg. Hyperlipidemia: - Elevated LDL cholesterol noted at 153 mg/dL, managed by dietary modifications. Patient declined to take medication Retinal tear: - Experienced in December; presented initial ly with visual disturbances including flashes and the perception of black dots and a veil. - Treated by Dr. Vargas; cause undete rmined, potentially age-related. Retinal detachment Anxiety: - Described as non-existent at present. Vaginal dryness: - Recently addressed by TUBE SIZER AND CUTTER OPERATOR, given a vaginal prescription. For estrogen vaginally Medical History: - Essential hypertension - Hyperlipidemia - Retinal tear in December Health Maintenance - Mammogram completed on March 09; results were satisfactory. - Regular TUBE SIZER AND CUTTER OPERATOR visits; last visit was satisfactory at the end of February. - Colon cancer screening performed with a Cologuard kit; specimen pickup by UPS was pending. - Lab work for cholesterol screening was completed in November, with a repeat due in May. [facility] of Care - Dr. Barros, TUBE SIZER AND CUTTER OPERATOR - Dr. Vargas, specialist for retinal care Patient Instructions - Continue managing cholesterol with tary modifications. - Follow up with blood work for choleste rol screening as planned. - Continue medication for high blood pre ssure. - Proceed with the Cologuard kit collect ion and shipping. - Engage in preventive care efforts. Follow-up 6 months Review of Systems - General: No fever no chills - Neurological: No headaches no dizzin ess - Ear nose throat: No sore throat no hearing difficulty no ear pain - Cardiovascular: No syncope, no chest pain, no palpitations - Gastrointestinal: No nausea vomiting or diarrhea - Endocrine: No polyuria polydipsia no heat intolerance - Genitourinary: No dysuria - Skin: No new complaints Physical Exam General: Cooperative, healthy appearing, comfortable, no acute distress Orientation: Patient oriented x3 Limitations: None Head: Normal to inspection Ears: Within normal limit visually Nose: Normal external nose present Face and sinus: Normal facial exam Eyes: Appearance normal, extraocular movement intact pupils reactive to light Neck: Normal visual inspection and supple Respiratory: Normal respiratory effort and able to speak in complete sentences. Clear to auscultation, no stridor Cardiovascular: S1 and S2 RRR, blood pressure 122/80 Breast exam through OBGYN GI: Normal to inspection. Soft to palpation and nontender Skin: Turgor normal, no acute findings Neuro: Patient oriented x3, motor sensory intact, balance intact, tandem pass Extremities: Normal to inspection; ankles checked and found to be in good condition . [facility] Medical History Epidermal inclusion cyst Anxiety Lab test positive for detection of COVID-19 virus Hypertension, essential Surgical History History of removal of cyst Family History Father Heart disease Substance use disorder Mother HTN (hypertension) Mental health disorder Brother No problems noted. Sister Heart disease Substance use disorder Social History Housing: House Alcohol intake: current Alcohol intake frequency: a few times a week Patient Tobacco Use Status: Former Tobacco user Tobacco use type: Cigarette Years Smoked: 26 years e-Cigarette/Vaping Use: Never Used service: No Current occupational status: employed Cognitive needs: No Hearing needs: No Vision needs: Yes Questionnaire PHQ-9 Over the last 2 weeks, how often have you been bothered by any of the following problems? 1. Little interest or pleasure in doing things: not at all 2. Feeling down, depressed, or hopeless: not at all 3. Trouble falling or staying asleep, or sleeping too much: not at all 4. Feeling tired or having little energy: not at all 5. Poor appetite or overeating: not at all 6. Feeling bad about yourself - or that you are a failure or have let yourself or your family down: not at all 7. Trouble concentrating on things, such as reading the newspaper or watching television: not at all 8. Moving or speaking so slowly that other people could have noticed. Or the opposite - being so fidgety or restless that you have been moving around a lot more than usual: not at all 9. Thoughts that you would be better off or of hurting yourself in some way: not at all Total score: 0 Depression Screening Interpretation: Negative Depression Screening Done: Yes 17828 - PHQ-9 Billing: Yes Source: Developed by Drs. Lyndon Perales, Wendy Dela Cruz, Chalo Beavers and colleagues, with an educational leslie from [employer]. Thrive Questionnaire Date Thrive assessed: 09/19/24 I am a: Patient What is your living situation today?: I have a steady place to live Within the past 12 months, did the food you bought not last and you didn't have the money to get more?: Never true Within the past 12 months, did you worry whether your food would run out before you got money to buy more?: Never true Do you have trouble paying for medicines?: No Do you have trouble getting transportation to medical appointments?: No Do you have trouble paying your heating and electricity bill?: No Do you have trouble taking care of your child, family member or friend?: No Do you have trouble with day-to-day activities such as bathing, preparing meals, shopping, managing finances, etc.?: No Are you currently unemployed and looking for a job?: No Are you interested in more education?: No Please select the resources that you would like help with: None Currently or been in a relationship where the following occur: No concerns reported THRIVE Score: 0 JUD-7 AMB Questionnaire JUD-7 Date JUD - 7 assessed: 03/25/25 Feeling nervous, anxious, or on edge: 0 = Not at all Not being able to stop or control worryin = Not at all Worrying too much about different things: 0 = Not at all Trouble relaxin = Not at all Being so restless that it is hard to sit still: 0 = Not at all Becoming easily annoyed or irritable: 0 = Not at all Feeling afraid as if something awful might happen: 0 = Not at all Total JUD-7 score (0-4 normal; 5-9 mild; 10-14 moderate; 15-21 severe): 0 Source: Developed by Drs. Lyndon Perales, Wendy Dela Cruz, Chalo Beavers and colleagues, with an educational leslie from [employer]. JUD-7 Assessment Billing JUD-7 Assessment Tool: JUD-7 Assessment 67087 Physical exam (Primary Care) Vital Signs: Last Vital Signs Pulse 80 03/25/25 14:26 Resp 16 03/25/25 14:26 BP 122/80 03/25/25 14:26 Pulse Ox 97 03/25/25 14:26 Oxygen Delivery Method Room Air 03/25/25 14:26 BMI result Body Mass Index 25.0 Tobacco/Smoking Status: Tobacco use Status Tobacco use date assessed 03/25/25 03/25/25 14:32 Patient Tobacco Use Status Former Tobacco user 03/25/25 14:27 Tobacco use type Cigarette 03/25/25 14:27 e-Cigarette/Vaping Use Never Used 03/25/25 14:27 PHQ-9: PHQ-9 Score PHQ-9: Total score 0 03/25/25 14:54 Depression Screening Interpretation: Negative Thrive Assessment: Date of Thrive Assessment Date Thrive assessed 09/19/24 03/25/25 14:27 Currently or been in a relationship where the following occur: No concerns reported Coding Level of Care Code Est Pt Level 3 (28826) Est Pt Prev Care 40-64y(61643) Diagnoses Encounter for general adult medical examination with abnormal findings Z00.01 Hypertension, essential I10 Lipid disorder E78.9 History of retinal tear Z86.69 Additional Codes JUD-7 Assessment Billing - JUD-7 Assessment Tool: JUD-7 Assessment 10424 ([id number]) PHQ-9 - 20718 - PHQ-9 Billing: Yes ([id number]) Assessment & Plan Assessment & Plan (1) Encounter for general adult medical examination with abnormal findings: Code(s): Z00.01 - Encounter for general adult medical examination with abnormal findings Category: Medical (2) Hypertension, essential: Code(s): I10 - Essential (primary) hypertension Category: Medical (3) Lipid disorder: Code(s): E78.9 - Disorder of lipoprotein metabolism, unspecified Category: Medical (4) History of retinal tear: Code(s): Z86.69 - Personal history of other diseases of the nervous system and sense organs Category: Medical Plan Essential hypertension: - Hypertension controlled with Atenolol Chlorthalidone; blood pressure reading was 122/80 mmHg. Hyperlipidemia: - Elevated LDL cholesterol noted at 153 mg/dL, managed by dietary modifications. Patient declined to take medication Retinal tear: - Experienced in December; presented initially with visual disturbances including flashes and the perception of black dots and a veil. - Treated by Dr. Vargas; cause undetermined, potentially age-related. Retinal detachment Anxiety: - Described as non-existent at present. Vaginal dryness: - Recently addressed by TUBE SIZER AND CUTTER OPERATOR, given a vaginal prescription. For estrogen vaginally Medical History: - Essential hypertension - Hyperlipidemia - Retinal tear in December Health Maintenance - Mammogram completed on March 09; results were satisfactory. - Regular TUBE SIZER AND CUTTER OPERATOR visits; last visit was satisfactory at the end of February. - Colon cancer screening performed with a Cologuard kit; specimen pickup by UPS was pending. - Lab work for cholesterol screening was completed in November, with a repeat due in May. [facility] of Care - Dr. Barros, TUBE SIZER AND CUTTER OPERATOR - Dr. Vargas, specialist for retinal care Patient Instructions - Continue managing cholesterol with dietary modifications. - Follow up with blood work for cholesterol screening as planned. - Continue medication for high blood pressure. - Proceed with the Cologuard kit collection and shipping. - Engage in preventive care efforts. Follow-up 6 months . Orders: Orders Complete Blood Count Auto Diff Today E78.9 - Disorder of lipoprotein metabolism, unspecified, I10 - Essential (primary) hypertension, Z00.01 - Encounter for general adult medical examination with abnormal findings Comprehensive Met. Panel Today E78.9 - Disorder of lipoprotein metabolism, unspecified, I10 - Essential (primary) hypertension, Z00.01 - Encounter for general adult medical examination with abnormal findings Medications: Refilled atenolol-chlorthalidone 50-25 mg 1 tab PO DAILY 90 tabs 1RF 90 days I10 - Essential (primary) hypertension
--- OUTSIDE RECORDS SUMMARY | 2025-03-25 18:09 | XMS_ITS | Patient Health Record ---
Author Organization [facility] [employer] [facility] Address [address] [address] Care Team Providers Care Barrel Rifler Button Name Role Phone BEE GUDINO Primary Care Provider Fern Haney Unavailable [phone] Allergies No Known Allergies Results Component Value Reference Range Notes Urinalysis Reviewed date:03/09/2025 09:03:23 AM Interpretation: Performing Lab: Notes/Report: PH 6.0 PROTEIN Neg GLUCOSE Neg BLOOD Neg Reason For Referral No Information Medications Medication SIG (Take, Route, Frequency, Duration) Notes Start Date End Date Status Estradiol 10 MCG 1 tablet Vaginal THR EE TIMES PER WEEK; Duration: 90 days 03/09/2025 Active Vitamin C 500 MG as directed Orally PRN Active Vitamin D3 25 MCG (1000 UT) 1 capsule Or ally Once a day; Duration: 30 day(s) PRN Active Vitamin B12 1000 MCG 1 tablet Orally Onc e a day; Duration: 30 day(s) PRN Active valACYclovir HCl 1 GM 1 tablet Orally Tw ice a day at earlies signs of symptoms x 3 days then prn; Duration: 14 days 03/20/2020 Active Atenolol-Chlorthalidone 50-25 MG Oral; Duration: 90 Active [...] last smoked? Grea ter than 10 years Section Notes: MARITAL [...] Problem Status W/U Status Risk Notes Problem Postmenopausal atrophic vaginitis (03649838) Postmenopausal atrophic vaginitis (N95.2) Active confirmed Problem Stenosis of cervix (09816896) Stricture and stenosis of cervix uteri (N88.2) Active confirmed Problem Essential hypertension (00370637) Essential (primary) hypertension (I10) Active confirmed Problem Herpes simplex viral infection (93065193) Herpesviral infection, unspecified (B00.9) Active confirmed Problem Herpes simplex without complication (529968121) Herpes simplex without mention of complication (054.9) Active confirmed Major Vital Signs Temperature 97.4 degrees Fahrenheit 03/09/2025 Blood pressure diastolic 78 mm Hg 03/09/2025 Height 64 in 03/09/2025 Blood pressure systolic 108 mm Hg 03/09/2025 Weight 145 lbs 03/09/2025 BMI 24.89 kg/m2 03/09/2025 Encounters Encounter Location Date Provider Diagnosis Total [address] [place] [address] 03/09/2025 Fern Barros Encounter for screening mammogram for malignant neoplasm of breast Z12.31 ; Encounter for gynecological examination (general) (routine) with abnormal findings Z01.411 ; Postmenopausal atrophic vaginitis N95.2 ; Herpesviral infection, unspecified B00.9 and Dense breasts, unspecified R92.30 Total [facility] [address] [place] [address] 06/05/2024 Fenr Barros Assessments Encounter Date Diagnosis (ICD Code) Assessment Notes Treatment Notes Treatment Clinical Notes Section Notes 03/09/2025 Encounter for gynecological examination (general) (routine) with abnormal findings (ICD-10 - Z01.411) NO PAP TEST, D[place] IN 202603/09/2025 Encounter for screening mammogram for malignant neoplasm of breast (ICD-10 - Z12.31) REGULAR MAMMOGRAMS AND SBE'S WERE RECOMMENDED. 03/09/2025 Postmenopausal atrophic vaginitis (ICD-10 - N95.2) DISCUSSED FINDINGS, DX AND TX OPTIONS. DISCUSSED BENEFITS AND RISKS OF INTRAVAGINAL ESTROGEN. PAT AGREED TO TRY. RX AND DETAILED INSTRUCTIONS FOR ESTRADIOL TABS 10 MCG WERE GIVEN. 03/09/2025 Herpesviral infection, unspecified (ICD-10 - B00.9) PAT WILL CALL FOR VALTREX RX. HER ATTACKS ARE FEW AND FAR BETWEEN. 03/09/2025 Dense breasts, unspecified (ICD-10 - R92.30) DISCUSSED DENSE BREASTS ON MAMMOGRAM AND ITS IMPLICATIONS. 3D MAMMOGRAMS WERE RECOMMENDED. Plan Of Treatment Pending Test Test Name Order Date MAMMOGRAM, SCREENING 03/09/2025 MAMMOGRAM, SCREENING 11/19/2023 MAMMOGRAM, SCREENING 04/04/2022 Ultrasound : Pelvic 01/15/2018 ANTI-HEPATITIS C 03/03/2020 HEP. B SURF. AG 03/03/2020 THIN PREP,HPV,POLO IF HPV+ (>29YR)(SCRN) 10/27/2015 MM Digital Mammo Screening 10/27/2015 MM Digital Mammo Screening 03/09/2025 MM Digital Mammo Screening 11/19/2023 MM Digital Mammo Screening 01/15/2018 MM Digital Mammo Screening 11/07/2016 MM Digital Mammo Screening 04/04/2022 SYPHILIS TESTING 03/03/2020 HIV AB-AG 4TH GENERATION 03/03/2020 Next Appt Details Provider Name:Fern galvez, 03/29/2026 08:40:00 AM, [address] [facility] [address], [address], [place], [address], Insurance Providers Payer Name Payer Address Payer Phone Subscriber Number Group Number Insured Name Patient Relationship to Insured Coverage Start Date Coverage End Date [employer] [address] [place] [address] [id number] CAROLYN ROQUE Self - patient is the [...] of trunk D17.1 Surgical History Surgery Date(Month/Year) Retinal Surgery
== END 2025-03-25 14:56 | disposition home or self-care (01) ==
LOC: HO.HMCC 14:23
PROVIDERS: PCP Internal Medicine; Visit Provider Internal Medicine
DX: Z00.01 Encounter for general adult medical examination with abnormal findings (principal); I10 Essential (primary) hypertension; E78.9 Disorder of lipoprotein metabolism, unspecified; Z86.69 Personal history of other diseases of the nervous system and sense organs

== ENCOUNTER 2025-03-25 14:22 | Outpatient (REF) | payer OTHER, SELFPAY ==
[2025-03-25 16:15] LABS: MANUAL DIFF FLAG NO
[2025-03-25 16:19] LABS: Hematocrit 37.5 % (37.0-47.0); Hemoglobin 13.6 g/dl (12.0-16.0); Imm Gran Abs Auto 0.02 X10*3/uL (0.00-0.03); Imm Gran Pct Auto 0.3 % (0.0-0.4); Lymphocytes Absolute Auto 2.8 X10*3/uL (1.2-4.9); Mean Corpuscular HGB Conc 36.3 g/dl (31.0-35.0); Mean Corpuscular Hemoglobin 33.3 pg (27.0-33.0); Mean Corpuscular Volume 91.9 fL (80.0-98.0); NRBC Abs Auto 0.000 X10*3/uL (0.0-0.012); NRBC Pct Auto 0.0 /100WBC (0.0-0.2); Platelet Count 309 X10*3/uL (160-400); Red Blood Count 4.08 X10*6/uL (4.20-5.50); White Blood Count 7.2 X10*3/uL (4.8-10.8)
[2025-03-25 16:41] LABS: Alanine Aminotransferase 25 U/L (0-31); Albumin Level 4.7 g/dL (3.5-5.0); Alkaline Phosphatase 77 U/L (39-117); Anion Gap 11 (12-20); Aspartate Amino Transferase 20 U/L (5-31); Blood Urea Nitrogen 16 mg/dL (9-16); Calcium 9.4 mg/dL (8.4-10.2); Carbon Dioxide 30 mmol/L (22-29); Chloride 97 mmol/L (96-108); Estimated Glomerular Filt Rate > 60; Potassium 3.9 mmol/L (3.3-5.1); Sodium 134 mmol/L (135-145); Total Protein 7.1 g/dL (6.5-8.0)
== END 2025-03-25 14:23 | disposition home or self-care (01) ==
LOC: HO.HMGCLDS 14:22
PROVIDERS: PCP Internal Medicine; Visit Provider Internal Medicine
DX: Z00.01 Encounter for general adult medical examination with abnormal findings (principal); I10 Essential (primary) hypertension; E78.5 Hyperlipidemia, unspecified; F41.9 Anxiety disorder, unspecified; N89.8 Other specified noninflammatory disorders of vagina; Z86.69 Personal history of other diseases of the nervous system and sense organs
CPT/HCPCS: 36415; 80053; 85025; 96127